=== PATIENT | female | born 1975 ===

== ENCOUNTER 2017-11-30 07:10 | Inpatient (IN) | payer MEDICAID ==
[~2017-11-30 07:10] MED LIST: Lidocaine 1%/Sod Bicarbonate in NS 8.4% 1 ML Syringe IDERM PRN; Sodium Chloride 0.9% 10 ML Syringe FLUSH PRN
[2017-11-30] MEDS: Lactated Ringers 1,000 ML IV SCH ×2 (07:35→14:16)
[2017-11-30] MEDS ORDERED: Scopolamine 1.5 MG Transdermal Patch TOP ONE (07:38)
--- NOTE | 2017-11-30 07:59 | PCM.PREANE ---
Preanesthetic Assessment - Anesthesia/Transfusion/Family Hx Anesthesia History: Prior Anesthesia Reaction Type of Anesthesia Reaction: Other (see below) (ARNOLD) Transfusion History: No Prior Transfusion(s) - Review of Systems General: No Symptoms Pulmonary: No Symptoms Cardiovascular: No Symptoms Gastrointestinal: No Symptoms Neurological: No Symptoms Other: Reports: None - Physical Assessment NPO Status Date: 11/29/17 NPO Status Time: 21:00 Pulse: 71 O2 Sat by Pulse Oximetry: 97 Respiratory Rate: 20 Blood Pressure: 118/60 Vital Signs: Last Vital Signs Temp 37.0 C 11/30/17 07:20 Pulse 71 11/30/17 07:20 Resp 20 11/30/17 07:20 BP 118/60 11/30/17 07:20 Pulse Ox 97 11/30/17 07:20 Height: 1.75 m Weight: 72.121 kg ASA Class: 2 Mental Status: Alert & Oriented x3 Airway Class: Mallampati = 1 Dentition: Reports: Normal Dentition Thyro-Mental Finger Breadths: 3 Mouth Opening Finger Breadths: 3 ROM/Head Extension: Full Lungs: Clear to Auscultation, Normal Respiratory Effort Cardiovascular: Regular Rate, Regular Rhythm - Lab Values: Laboratory Last Values WBC 4.62 K/mm3 (3.98-10.04) 11/28/17 12:33 RBC 4.20 M/mm3 (3.98-5.22) 11/28/17 12:33 Hgb 13.6 gm/L (11.2-15.7) 11/28/17 12:33 Hct 40.5 % (34.1-44.9) 11/28/17 12:33 MCV 96.4 fl (79.4-94.8) H 11/28/17 12:33 MCH 32.4 pg (25.6-32.2) H 11/28/17 12:33 MCHC 33.6 g/dl (32.2-35.5) 11/28/17 12:33 RDW Std Deviation 41.4 fL (36.4-46.3) 11/28/17 12:33 Plt Count 291 K/mm3 (182-369) 11/28/17 12:33 MPV 9.3 fl (9.4-12.3) L 11/28/17 12:33 Neut % (Auto) 55.3 % (34.0-71.1) 11/28/17 12:33 Lymph % (Auto) 33.3 % (19.3-51.7) 11/28/17 12:33 [place] % (Auto) 8.7 % (4.7-12.5) 11/28/17 12:33 Eos % (Auto) 1.9 (0.7-5.8) 11/28/17 12:33 Baso % (Auto) 0.6 % (0.1-1.2) 11/28/17 12:33 Neut # (Auto) 2.55 K/mm3 (1.56-6.13) 11/28/17 12:33 Lymph # (Auto) 1.54 K/mm3 (1.18-3.74) 11/28/17 12:33 [place]iken # (Auto) 0.40 K/mm3 (0.24-0.36) H 11/28/17 12:33 Eos # (Auto) 0.09 K/mm3 (0.04-0.36) 11/28/17 12:33 Baso # (Auto) 0.03 K/mm3 (0.01-0.08) 11/28/17 12:33 Creatinine 0.9 mg/dL (0.55-1.02) 11/28/17 12:33 Est Cr Clr Drug Dosing TNP 11/28/17 12:33 Estimated GFR (MDRD) > 60 mL/min (>60) 11/28/17 12:33 Urine Color Yellow (Yellow) 11/28/17 12:33 Urine Appearance Clear (Clear) 11/28/17 12:33 Urine pH 5.5 (5.0-8.0) 11/28/17 12:33 Ur Specific [place] 1.025 (1.005-1.030) 11/28/17 12:33 Urine Protein Negative (Negative) 11/28/17 12:33 Urine Glucose (UA) Negative (Negative) 11/28/17 12:33 Urine Ketones 1+ (Negative) H 11/28/17 12:33 Urine Occult Blood Negative (Negative) 11/28/17 12:33 Urine Nitrite Negative (Negative) 11/28/17 12:33 Urine Bilirubin Negative (Negative) 11/28/17 12:33 Urine Urobilinogen 0.2 (0.2-1.0) 11/28/17 12:33 Ur Leukocyte Esterase Negative (Negative) 11/28/17 12:33 Urine HCG, Qual Negative (NEGATIVE) 11/28/17 12:33 - Allergies Allergies/Adverse Reactions: Allergies Allergy/AdvReac Type Severity Reaction Status Date / Time Penicillins Allergy Mild Hives Verified 11/29/17 10:29 - Acknowledgements Anesthesia Type Planned: General Anesthesia Pt an Appropriate Candidate for the Planned Anesthesia: Yes Alternatives and Risks of Anesthesia Discussed w Pt/Guardian: Yes Pt/Guardian Understands and Agrees with Anesthesia Plan: Yes PreAnesthesia Questionnaire HEENT History: Reports: Allergic Rhinitis, Impaired Vision, Other (See Below) Other HEENT History: glasses, contacts Cardiovascular History: Reports: None Respiratory History: Reports: None Gastrointestinal History: Reports: None Genitourinary History: Reports: Urinary Incontinence, Other (See Below) Other Genitourinary History: stress urinary incontinence, cystocele, rectocele, pelvic organ prolapse BLADDER CHANGER History: Reports: Spontaneous , Other (See Below) (HCG negative 11/30/17) Other OB/BYN History: breast feeding, Musculoskeletal History: Reports: None Neurological History: Reports: None Other Neuro History: Approx 2 months ago, pt experienced freq COELLO's over the course of about one month. She states these resolved spontaneously and would improve with plain APAP. Psychiatric History: Reports: Anxiety, Depression Other Psychiatric History: Pt has experienced some episodes of PP depression following some of her deliveries. Endocrine/Metabolic History: Reports: None Hematologic History: Reports: None Immunologic History: Reports: None Oncologic (Cancer) History: Reports: None Dermatologic History: Reports: None - Past Surgical History Head Surgeries/Procedures: Reports: None Cardiovascular Surgical History: Reports: None Respiratory Surgical History: Reports: None GI Surgical History: Reports: None Female Surgical History: Reports: None, Other (See Below) (laparoscopy for IUD removal, proceeded to open case) Male Surgical History: Reports: None Endocrine Surgical History: Reports: None Neurological Surgical History: Reports: None Musculoskeletal Surgical History: Reports: None Oncologic Surgical History: Reports: None Dermatological Surgical History: Reports: None - SUBSTANCE USE Smoking Status *Q: Former Smoker Recreational Drug Use History: No - HOME MEDS Home Medications: Home Meds . [No Known Home Meds] 10/25/18 [History] - CURRENT (IN HOUSE) MEDS Current Meds: Current Medications Lactated Ringer's (Ringers, Lactated) 1,000 mls @ 125 mls/hr IV ASDIRECTED SOPHIE Stop: 11/30/17 23:00 Last Admin: 11/30/17 07:35 Dose: 125 mls/hr Lidocaine/Sodium Bicarbonate (Buffered Lidocaine 1% In Ns 8.4%) 0.25 ml IDERM ONETIME PRN PRN Reason: Prior to IV Start Stop: 11/30/17 18:00 Last Admin: 11/30/17 07:34 Dose: 0.25 ml Sodium Chloride (Saline Flush) 10 ml FLUSH ASDIRECTED PRN PRN Reason: Keep Vein Open Stop: 11/30/17 18:00 Discontinued Medications Scopolamine (Transderm-Scop) 1.5 mg TOP ONETIME ONE Stop: 11/30/17 07:39
[2017-11-30] MEDS ORDERED: fentaNYL 250 MCG/5 ML SDV ONE (08:15)
[2017-11-30] MEDS ORDERED: Midazolam 1 MG/ML 2 ML SDV ONE (08:15)
[2017-11-30] MEDS ORDERED: Rocuronium 50 MG/5 ML Vial ONE (08:15)
[2017-11-30] MEDS ORDERED: Ondansetron 4 MG/2 ML SDV ONE (08:15)
[2017-11-30] MEDS ORDERED: Dexamethasone 4 MG/ML SDV ONE (08:15)
[2017-11-30] MEDS ORDERED: Ketamine 500 mg/10 ML MDV ONE (08:15)
[2017-11-30] MEDS ORDERED: Lidocaine 1% 4 ML ONE (08:15)
[2017-11-30] MEDS ORDERED: Propofol 200 MG/20 ML SDV ONE ×6 (08:15→10:08)
[2017-11-30] MEDS ORDERED: HYDROmorphone 0.5 MG/0.5 ML Syringe ONE ×3 (08:15→15:20)
[2017-11-30] MEDS ORDERED: ceFAZolin 1 GM Vial ONE (08:19)
[2017-11-30] MEDS ORDERED: Lidocaine 1% with EPINEPHrine 1:100,000 20 ML MDV ONE (08:23)
[2017-11-30] MEDS ORDERED: Sodium Chloride 0.9% 50 ML SDV ONE (08:23)
[2017-11-30] MEDS ORDERED: fentaNYL 100 MCG/2 ML SDV IVPUSH PRN (09:11)
[2017-11-30] MEDS ORDERED: Meperidine 50 MG/ML Vial IVPUSH PRN (09:11)
[2017-11-30] MEDS ORDERED: HYDROmorphone 0.5 MG/0.5 ML Syringe IVPUSH ONE (09:11)
[2017-11-30] MEDS ORDERED: diphenhydrAMINE 50 MG/ML SDV IVPUSH PRN (09:11)
[2017-11-30] MEDS ORDERED: Ondansetron 4 MG/2 ML SDV IVPUSH PRN ×2 (09:11→10:26)
[2017-11-30] MEDS ORDERED: Ketorolac 30 MG/ML SDV ONE (09:20)
[2017-11-30] MEDS ORDERED: Lactated Ringers 1,000 ML ONE (09:28)
[2017-11-30] MEDS ORDERED: Acetaminophen/oxyCODONE 325-5 MG Tab PO PRN ×2 (10:26→17:12)
[2017-11-30] MEDS ORDERED: Ketorolac 30 MG/ML SDV IVPUSH SCH (10:30)
--- NOTE | 2017-11-30 10:34 | PCM.POSTAN ---
POST ANESTHESIA ASSESSMENT - MENTAL STATUS Mental Status: Alert, Oriented - VITAL SIGNS Pulse Rate: 75 SaO2: 100 Resp Rate: 10 Blood Pressure: 107/59 Temperature: 36.8 C - RESPIRATORY Respiratory Status: Respiratory Rate WNL, Airway Patent, O2 Saturation Stable, Supplemental Oxygen - CARDIOVASCULAR CV Status: Pulse Rate WNL, Blood Pressure Stable - GASTROINTESTINAL GI Status: No Symptoms - PAIN Pain Score: 0 - POST OP HYDRATION Hydration Status: Adequate & Stable
--- NOTE | 2017-11-30 10:37 | PCM.OPNOTE ---
- General Post-Op/Procedure Note Date of Surgery/Procedure: 11/30/17 Operative Procedure(s): Total vaginal hysterectomy, bilateral salpingectomy, anterior and posterior vaginal repair, modified Moschcowitz procedure, perineoplasty, subfascial mid-urethral sling. Findings: Grade 2-3 cystocele, grade 2 uterine prolapse, grade 2-3 rectocele. Patient had normal-appearing ovaries and these were left in place per patient desire. Pre Op Diagnosis: 1. Cystocele. 2. Rectocele. 3. Uterine prolapse. 4. Stress urinary incontinence Post-Op Diagnosis: Same Anesthesia Technique: General ET Tube Other Anesthesia Type: Lidocaine quarter percent with epinephrinetotal of approximately 30 mLloc Primary Surgeon: Tarik Judge Secondary Surgeon: Elliot Johnston Anesthesia Provider: Francisco Javier Randall Internal Controls Consultant: Caden Sheppard Reason Internal Controls Consultant Was Necessary: Same Role of Internal Controls Consultant: Retraction, assistance, patient safety, quality of care Complications: None Condition: Good Free Text/Narrative:: Intake & Output 11/29/17 11/30/17 11/30/17 22:59 06:59 14:59 Output Total 230 Balance -230 Surgery duration one hour and 27 minutes. Procedure: The patient was placed in supine position on the operating table. She received 2 g of Ancef preoperatively for infection prophylaxis and had sequential compression stockings in place for DVT prophylaxis. General endotracheal anesthesia was accomplished. After positioning, and adequate prep and drape, the procedure was then performed. Sterile speculum was placed in the vagina and cervix was visualized. Cervix was injected with [lidocaine quarter percent with epinephrine]. [20 cc] used. A full circumference incision was made in the cervical epithelium. The bladder was pushed well back off cervix. Posterior cul-de-sac was then entered sharply without problems. Left uterosacral was crossclamped with a Enseal vessel closure system. The left uterosacral and then the right uterosacral ligament pedicles were developed using the Enseal system. The anterior cul-de-sac was then entered without problems and the uterine vasculature, cardinal ligament and broad ligament then developed using Enseal vessel closure system. The uterus was inverted at this time and upper broad ligament fallopian tube pedicles were crossclamped with Kaushal clamps. Specimen was totally removed. Left and right fallopian tube was normal. Using the vessel closure system each of the tubes was then removed and sent with the specimen. The patient was found to be hemostatically intact at this time. Anterior vaginal repair was performed in the routine fashion. The midline epithelium was grasped approximately 2 cm from the urethral meatus. The epithelium at the vaginal cuff after removal of the uterus was grasped 2 with Allis clamps. The epithelium was infiltrated with lidocaine quarter percent with epinephrine approximately 10 mL. Midline incision was made in the epithelium was dissected off the underlying support tissue. The vesicovaginal fascia that remained was then reapproximated midline with approximately 5 stitches of 0 Monocryl. This effectively reduced the cystocele. Excess epithelium was removed on each side sharply and the epithelium was reapproximated using 3-0 Monocryl a short running suture. Vaginal cuff was closed after posterior aspect was run with 0 Monocryl in a locking suture for hemostasis. Modified Moschcowitz procedure was performed using 0 Monocryl securing the uterosacral ligaments to the lateral angles of the vagina. Bladder was again drained with a red rubber catheter. 240 mL normal urine was removed. The epithelium overlying the urethra was grasped approximately 1 cm from the urethral meatus and approximately 2 cm cephalad from there with Allis clamps. The area of the skin overlying the medial aspect of the obturator foramen on each side just posterior to the origin the abductor longus muscle was marked with a marking pen. These 2 areas and the sub-fascial layer of the vaginal were then infiltrated with lidocaine quarter percent with epinephrine total of approximately 10 mL was used. incisions made in the epithelium overlying the urethra and 2 small stab wounds 3 mm in length were made in the 2 areas of the panty line of the patient. The subfascial planes and adequately dissected bilaterally to allow placement of the mesh. The helical adapter was then placed through the obturator on patient's left side brought out through the vaginal subfascial plane. Mesh was attached to it and then was pulled back through the obturator foramen. Same was done on the right side. Mesh was then snugged up to the urethra. Dilator 15 mm in diameter was used as a spacer to place the mesh in a tension-free position. At this point the mesh was cut off at the skin surface and the dilator was removed. The midline epithelium was closed with a short running suture of 3-0 Monocryl. Skin incisions were closed with Dermabond skin glue. Posterior repair was then performed.The uppermost portion of the rectocele was identified and was grasped midline with an Allis clamp. The introital area was grasped at approximately the 4:00 and 8:00 positions at the junction of the vaginal and vulvar epithelium. The area of epithelium was then infiltrated with lidocaine quarter percent with epinephrine. A zach-shaped piece of epithelium was removed from the posterior introital and perineal area. The vaginal epithelium was then undermined superiorly to the top of the rectocele. Was then incised midline. With sharp and blunt dissection the epithelium was then dissected off of the underlying vesicovaginal fascia. At this point approximately 6 sutures of 0 Monocryl were placed to reapproximate the lateral supportive tissue midline and reduce the rectocele. The excess epithelium was then excised and the epithelium overlying the rectocele repair was then reapproximated with a running suture of 3-0 Monocryl. Perineoplasty was performed using 4 V-type stitches of 0 Monocryl. This lengthened the perineal body and the vagina. Also change the angle of vagina. At this point the epithelium over the perineum was closed in an episiotomy fashion using the 3-0 Monocryl suture. The bladder was filled with approximately 240 cc of normal saline at the very end of the case to facilitate voiding and therefore discharged home. Patient was returned to supine position and awakened from general endotracheal anesthesia. She tolerated the procedure was then left the operating room in satisfactory condition.
[2017-11-30] MEDS ORDERED: HYDROmorphone 0.5 MG/0.5 ML Syringe IVPUSH PRN (15:18)
[2017-11-30] MEDS: Ketorolac 30 MG/ML SDV IVPUSH PRN (17:21)
[2017-11-30] MEDS ORDERED: Belladonna Alkaloids/Opium 16.2-30 MG Supp RECTAL ONE (19:00)
[2017-11-30] MEDS ORDERED: hydrALAZINE 25 MG Tab PO PRN (19:31)
[2017-11-30] MEDS ORDERED: Benzocaine/Menthol 20%-0.5% Spray 56 GM Canister TOP PRN (19:32)
[2017-11-30] MEDS ORDERED: Witch Hazel Medicated Pads 100/Jar TOP PRN (19:32)
[2017-11-30] MEDS ORDERED: hydrOXYzine HCl 25 MG Tab PO PRN (20:00)
[2017-11-30] MEDS: Nitrofurantoin Monohydrate/Macrocrystalline 100 MG Cap PO SCH (21:43)
[2017-11-30] MEDS: Docusate Sodium 100 MG Cap PO PRN (21:43)
[2017-12-01] MEDS: Ketorolac 30 MG/ML SDV IVPUSH PRN ×2 (00:13→06:50)
[2017-12-01] MEDS ORDERED: hydrOXYzine HCl 25 MG/ML SDV IM ONE (00:41)
[2017-12-01] MEDS ORDERED: Morphine Sulfate 10mg/ml SDV IM ONE (00:45)
[2017-12-01] MEDS: Lactated Ringers 1,000 ML IV SCH ×3 (01:27→13:12)
--- NOTE | 2017-12-01 01:35 | PCM.SN ---
- Free Text/Narrative Note: Patient examined at 0115 12/01/17. Ecchymosis perineal. Swelling right labia majora to vaginal mucosa about 8x8x10 cm from labia toward middle 1/3 of vagina and tender. Carrera catheter placed, 150 ml. Has been started on Macrobid already because of in and out caths required to drain bladder. Will keep patient NPO except ice chips then NPO after 0400 in case she had to go back to OR to have evaluation under anesthesia and possible drainage. Continue ice pack. Will re- evaluate in AM.
[2017-12-01] MEDS ORDERED: Iopamidol 612 MG/ML 150 ML Bottle IVPUSH ONE (08:09)
--- NOTE | 2017-12-01 08:28 | CT ---
CT abdomen and pelvis Technique: Multiple axial sections were obtained from above the dome of the diaphragm inferiorly through the pubic symphysis. Intravenous contrast was utilized. Delayed images were also obtained through the abdomen and pelvis. No oral contrast was utilized which diminishes details. Findings: Heterogeneous abnormality is seen posterior to the bladder within the pelvis. This finding measures approximately 11.0 cm in AP dimension and 10.8 cm in transverse dimension and about 15.3 cm in craniocaudal dimension. Please correlate if patient has had prior hysterectomy which would indicate this represents a large hematoma or a large heterogeneous uterus if patient still has the uterus in. Small amount of fluid is seen around the liver and spleen with heterogeneous material being seen within the left paracolic gutter compatible with blood. Cystic area is noted within the left anterior pelvis most likely representing ovarian cyst measuring 3.2 cm. Carrera catheter is present within the bladder. Visualized lung bases shows nothing acute. Liver shows no focal abnormality. Spleen appears within normal limits. Adrenal glands show no nodule. Pancreas is normal. Kidneys show symmetric contrast enhancement without hydronephrosis. No cyst or solid abnormality is seen. Aorta shows no aneurysm. Slight soft tissue density around the aorta is seen most likely due to blood tracking up from the pelvis. Appendix is not visualized with certainty. Delayed images shows contrast excretion into the ureters and bladder. Bone window settings shows no acute osseous abnormality. Impression: 1. Heterogeneous abnormality within the pelvis. Measurements as noted above. As mentioned above, this presumably represents a large hematoma if patient has had previous hysterectomy. If uterus is still in place, this would representing an enlarged heterogeneous uterus. 2. Fluid around the liver and spleen with more heterogeneous material seen within the left paracolic gutter. Small amount of fluid within the retroperitoneum is seen around the aorta. Findings most likely due to additional blood. 3. 3.2 cm cyst within the anterior lower pelvis most likely due to ovarian cyst. Note: Study somewhat limited without oral contrast. Diagnostic code #3
[2017-12-01] MEDS: Sodium Chloride 0.9% 500 ML ONE ×3 (08:30→09:31)
[2017-12-01] MEDS ORDERED: Acetaminophen 325 MG Tab PO PRN (08:50)
[2017-12-01] MEDS ORDERED: Sodium Chloride 0.9% 500 ML IV SCH (09:00)
[2017-12-01] MEDS ORDERED: Sodium Chloride 0.9% 500 ML ONE (09:07)
--- NOTE | 2017-12-01 10:39 | PCM.SN ---
- Free Text/Narrative Note: Patient seen and examined by me and Dr. Judge. Patient had significant decrease in hemoglobin hematocrit during the night no heavy vaginal bleeding but signs of significant hematoma on examination as well as CT scan. CT scan showed heterogenous abnormalities seen posterior to the bladder within the pelvis. This finding measured approximately 11.0 cm in AP dimension and 10.8 cm in transverse dimension and 15.3 cm in cranial caudad dimension. Patient has 6 units of blood type and cross matched receiving her second unit now, Patient also received 1 unit of fresh frozen plasma and has a unit of platelets to be infused. She has 4 additional units of blood type and cross matched for transfusion if needed. Will plan to take patient to the operating room for laparoscopy possible laparotomy possible incision and drainage of the hematoma additional surgery as indicated. Patient has been nothing by mouth throughout the night. Except for ice chips small medicine cup 1 very dry mouth. On clinical examination at the bedside chest clear. No abnormal breath sounds. Abdomen is tender spaced and suprapubic area. Significant ecchymosis of the left buttocks and hematoma the right labia majora and vagina.
[2017-12-01] MEDS ORDERED: Midazolam 1 MG/ML 2 ML SDV ONE (10:55)
[2017-12-01] MEDS ORDERED: ceFAZolin 1 GM Vial ONE (10:55)
[2017-12-01] MEDS ORDERED: Ondansetron 4 MG/2 ML SDV ONE (10:55)
[2017-12-01] MEDS ORDERED: Rocuronium 50 MG/5 ML Vial ONE (10:55)
[2017-12-01] MEDS ORDERED: Lactated Ringers 1,000 ML ONE ×2 (10:55→12:37)
[2017-12-01] MEDS ORDERED: Propofol 200 MG/20 ML SDV ONE ×2 (10:55→10:58)
[2017-12-01] MEDS ORDERED: fentaNYL 250 MCG/5 ML SDV ONE (10:56)
[2017-12-01] MEDS ORDERED: Lidocaine 1% 4 ML ONE (10:56)
[2017-12-01] MEDS ORDERED: Metoclopramide 10 MG/2 ML SDV ONE (11:15)
[2017-12-01] MEDS ORDERED: Bupivacaine 0.5% 30 ML SDV ONE (11:17)
[2017-12-01] MEDS ORDERED: Ketamine 500 mg/10 ML MDV ONE (11:22)
[2017-12-01] MEDS ORDERED: diphenhydrAMINE 50 MG/ML SDV IVPUSH PRN (12:28)
[2017-12-01] MEDS ORDERED: HYDROmorphone 0.5 MG/0.5 ML SYRINGE IV PRN (12:28)
[2017-12-01] MEDS ORDERED: Haloperidol Lactate 5 MG/ML SDV IVPUSH ONE (12:28)
[2017-12-01] MEDS ORDERED: fentaNYL 100 MCG/2 ML SDV IVPUSH PRN (12:28)
[2017-12-01] MEDS ORDERED: ePHEDrine 50 MG/ML SDV IVPUSH PRN (12:28)
[2017-12-01] MEDS ORDERED: Sodium Chloride 0.9% 1,000 ML ONE (12:30)
[2017-12-01] MEDS ORDERED: Succinylcholine/Normal Saline 100 MG/5 ML Syringe ONE (12:30)
[2017-12-01] MEDS ORDERED: Neostigmine Methylsulfate 1 MG/ML 5 ML Syringe ONE (12:53)
--- NOTE | 2017-12-01 13:20 | PCM.POSTAN ---
POST ANESTHESIA ASSESSMENT - MENTAL STATUS Mental Status: Alert, Oriented - VITAL SIGNS Pulse Rate: 95 SaO2: 100 Resp Rate: 16 Blood Pressure: 111/57 Temperature: 100.4 C - RESPIRATORY Respiratory Status: Respiratory Rate WNL, Airway Patent, O2 Saturation Stable, Supplemental Oxygen - CARDIOVASCULAR CV Status: Pulse Rate WNL, Blood Pressure Stable - GASTROINTESTINAL GI Status: No Symptoms - PAIN Pain Score: 0 - POST OP HYDRATION Hydration Status: Adequate & Stable
--- NOTE | 2017-12-01 13:25 | PCM.OPNOTE ---
- General Post-Op/Procedure Note Date of Surgery/Procedure: 12/01/17 Operative Procedure(s): Laparoscopy, evacuation of vaginal hematoma Findings: Blood clot noted under the vaginal epithelium posteriorly in the area of the posterior vaginal repair. Blood clot dissected to the right and to the left of the rectum. Hematoma from bleeding which dissected cephalad along the rectum, sigmoid colon and the ascending colon. No evidence of active bleeding in the peritoneal cavity. Hematoma extending into the right and left buttocks. Left greater than right. Ovaries looked normal bilaterally small cyst noted in the left ovary. Upper abdomen unremarkable. Pre Op Diagnosis: 1. Vaginal hematoma. 2. Acute blood loss anemia secondary to hematoma Post-Op Diagnosis: Same Anesthesia Technique: General ET Tube Other Anesthesia Type: Marcaine 0.5%approximate 10 mL total Primary Surgeon: Tarik Judge Secondary Surgeon: Elliot Johnston Anesthesia Provider: Peg Ryder County Adviser: Caden Sheppard Reason County Adviser Was Necessary: Retraction, assistance, quality of care, patient safety Role of County Adviser: same Fluid Replacement, Intraop: 500 (3 units packed red blood cells, 1 unit of fresh frozen plasma) Output, Urine Amount: 350 EBL in mLs: 1,250 (Blood loss includes evacuated hematoma and small amount of blood loss from the time surgery) Drain/Tube Comments:: Indwelling bladder catheter Complications: None Condition: Good Free Text/Narrative:: Intake & Output 11/30/17 12/01/17 12/01/17 22:59 06:59 14:59 Intake Total 3491 Output Total 700 2100 Balance -700 1391 Surgery duration: One hour and 35 minutes Procedure: Patient was taken to surgery and placed in supine position on the operating table. She received 2 g of Ancef preoperatively for infection prophylaxis. She had sequential compression stockings in place for DVT prophylaxis. She had been consented for laparoscopy, possible laparotomy, exam under anesthesia and other surgery as necessary regarding vaginal hematoma. After general endotracheal anesthesia was established patient was placed in dorsal lithotomy position and examined under anesthesia. It was apparent that there was a vaginal hematoma in the area of the posterior vaginal repair which appeared to have dissected around each side of the rectum and down into the buttocks. It then appeared to have dissected cephalad to the sigmoid colon and along the sigmoid colon and descending colon. The colon changes noted per evaluation with laparoscopy. Laparoscopy was then performed. A Verres needle was used to create a pneumoperitoneum. The patient then had 5 mm infraumbilical and a suprapubic port sites developed without problems. Eventually a lateral port site on the right side was developed also. There is no evidence of free blood in the peritoneal cavity. Only blood noted was that which appeared to have dissected along the sigmoid and descending colon. The area of hematoma appeared flaccid however and the bowel appeared to functional and without vascular compromise. Dr. Kathleen, general/GI surgeon, was consulted and came in to evaluate bowel findings at the time of laparoscopy. He felt that the hematoma was stable. He felt no further evaluation or therapy was necessary in this area. He also felt that there should be no significant chance of compromise of the bowel with these findings. At this time attention was turned to the vagina. Her vaginal epithelial incision line was taken down. A moderately large hematoma was immediately apparent in this area. Blood clot was removed. Just under the epithelium on the left side was noted an arterial bleeder that was still bleeding. This was clamped and suture ligated with 0 Vicryl. 2 other vessels were also occluded with hemoclips. Significant amount of clot was removed. At this time hemostasis was confirmed. FloSeal was placed in this subepithelial area to help decrease any likelihood of continued bleeding. The epithelium was then reapproximated using a short running suture of 0 Vicryl in the upper and of the posterior vaginal repair incision. Lower end of the incision was closed with 2 figure-of- eight sutures and a small opening to allow egress of any potential bleeding that might occur. The vagina was packed with a Kerlix sponge that had been prepped with Premarin vaginal cream. The indwelling bladder catheter remained in place during the surgery and was kept in place after the surgery. Once the vaginal portion procedure was finished patient's was again returned to a supine position and the laparoscopy was then used to evaluate the peritoneal cavity. No bleeding was noted. Hemostasis was confirmed. The abdominal incisions were closed with single interrupted suture of 3-0 Monocryl and further approximated with Dermabond skin glue. Patient was returned to the supine position and awakened from general endotracheal anesthesia. She left the operating room in satisfactory condition. Vital signs remained stable throughout the procedure.
[2017-12-01] MEDS ORDERED: Dexamethasone 4 MG/ML 5 ML MDV ONE (13:44)
[2017-12-01] MEDS: Nitrofurantoin Monohydrate/Macrocrystalline 100 MG Cap PO SCH (14:02)
[2017-12-01] MEDS ORDERED: Metoclopramide 10 MG/2 ML SDV IVPUSH ONE (14:05)
[2017-12-01] MEDS ORDERED: HYDROmorphone 1 MG/ML Syringe IVPUSH PRN (14:52)
[2017-12-01] MEDS ORDERED: Ondansetron 4 MG/2 ML SDV IVPUSH PRN (14:52)
[2017-12-01] MEDS ORDERED: Lactated Ringers 1,000 ML IV SCH (14:52)
[2017-12-01] MEDS: Acetaminophen/oxyCODONE 325-5 MG Tab PO PRN (16:50)
[2017-12-01] MEDS: ceFAZolin 1 GM in Premix Bag 1 BAG IV SCH ×2 (16:55→23:08)
[2017-12-01] MEDS: Docusate Sodium 100 MG Cap PO PRN (20:38)
[2017-12-02] MEDS: Acetaminophen/oxyCODONE 325-5 MG Tab PO PRN ×3 (05:31→20:01)
[2017-12-02] MEDS: ceFAZolin 1 GM in Premix Bag 1 BAG IV SCH ×4 (05:32→23:14)
[2017-12-02] MEDS: Lactated Ringers 1,000 ML IV SCH ×3 (09:32→19:59)
--- NOTE | 2017-12-02 10:26 | PCM.SN ---
- Free Text/Narrative Note: Vaginal pack removed today scant bleeding no bright red blood. Carrera catheter to be removed. Hemoglobin this morning 9.8. Patient in good spirits no leg cramping no abdominal tenderness. Stable. Regular diet, ambulate today, possibly home tomorrow.
[2017-12-02] MEDS: Docusate Sodium 100 MG Cap PO SCH ×2 (10:48→21:00)
--- NOTE | 2017-12-02 16:36 | PCM48HPAN ---
Post Anesthesia Note - EVALUATION WITHIN 48HRS OF ANESTHETIC Vital Signs in Normal Range: Yes Patient Participated in Evaluation: Yes Respiratory Function Stable: Yes Airway Patent: Yes Cardiovascular Function Stable: Yes Hydration Status Stable: Yes Pain Control Satisfactory: Yes Nausea and Vomiting Control Satisfactory: Yes Mental Status Recovered: Yes
--- NOTE | 2017-12-02 19:02 | PCM.SN ---
- Free Text/Narrative Note: Patient doing well. No heavy bleeding, small amount like light menstrual day. Voided with 160 prevoid and 72 post void residual earlier. No bowel movement as yet, will drink prune juice she says. Instructed to avoid straining with voiding or bowel movement.
--- NOTE | 2017-12-02 19:31 | PCM.DEL ---
L & D Note - General Info Date of Service: 12/02/17 Mother's Due Date: 11/22/17 - Delivery Note Labor: Spontaneous, Augmented by ARM, Augmented by Oxytocin Delivery Outcome: Livebirth (Male liveborn Sunday12/02/17 and 1908 hrs. JUAREZ Apgars 8/9 weight pending shoulder cord 1) Delivery Method: Spontaneous Vaginal Delivery-Single Infant Delivery Mode: Spontaneous Presentation: Right Occiput Anterior (JUAREZ) Nuchal Cord: None (Shoulder cord 1) Prep: Povidone-Iodine (Betadine Anesthesia Type: Combined Spinal Epidural Amniotic Fluid Description: Clear Episiotomy Type: None Laceration: 1st Degree (Right periurethral not bleeding not sutured, midline first-degree sutured 3-0 Monocryl times one) Suture type: Other (Monocryl) Suture size: 3-0 Placenta: Intact, Spontaneous (Delivered at 1911 hrs. Sunday12/02/17 intact examined discarded) Cord: 3 Vessels Estimated Blood Loss: 250 Resuscitation Needed: No : Suctioned, Bulb Syringe, Stimulated, Warmed, [place] Used, Warmer Used Provider: Elliot Johnston Score 1 min: 8 Score 5 min: 9 - General Info Date of Service: 12/02/17 Functional Status: Reports: Pain Controlled - Review of Systems General: Reports: No Symptoms HEENT: Reports: No Symptoms Pulmonary: Reports: No Symptoms Cardiovascular: Reports: No Symptoms Gastrointestinal: Reports: No Symptoms Genitourinary: Reports: No Symptoms Musculoskeletal: Reports: No Symptoms Skin: Reports: No Symptoms Neurological: Reports: No Symptoms Psychiatric: Reports: No Symptoms - Patient Data Vitals - Most Recent: Last Vital Signs Temp 98.4 F 12/02/17 16:24 Pulse 79 12/02/17 16:24 Resp 16 12/02/17 16:24 BP 107/40 L 12/02/17 16:24 Pulse Ox 95 12/02/17 16:24 Weight - Most Recent: 159 lb I&O - Last 24 Hours: Intake & Output 12/02/17 12/02/17 12/02/17 06:59 14:59 22:59 Intake Total 400 1500 1230 Output Total 300 185 100 Balance 100 1315 1130 Lab Results Last 24 Hours: Laboratory Results - last 24 hr 12/01/17 12/02/17 12/02/17 Range/Units 06:26 08:10 08:10 WBC 6.70 (3.98-10.04) K/mm3 RBC 3.26 L (3.98-5.22) M/mm3 Hgb 9.8 L (11.2-15.7) gm/L Hct 29.5 L (34.1-44.9) % MCV 90.5 (79.4-94.8) fl MCH 30.1 (25.6-32.2) pg MCHC 33.2 (32.2-35.5) g/dl RDW Std Deviation 51.7 H (36.4-46.3) fL Plt Count 132 L (182-369) K/mm3 MPV 9.5 (9.4-12.3) fl Neut % (Auto) 65.8 (34.0-71.1) % Lymph % (Auto) 23.6 (19.3-51.7) % Elbert % (Auto) 9.4 (4.7-12.5) % Eos % (Auto) 0.7 (0.7-5.8) Baso % (Auto) 0.4 (0.1-1.2) % Neut # (Auto) 4.40 (1.56-6.13) K/mm3 Lymph # (Auto) 1.58 (1.18-3.74) K/mm3 Elbert # (Auto) 0.63 H (0.24-0.36) K/mm3 Eos # (Auto) 0.05 (0.04-0.36) K/mm3 Baso # (Auto) 0.03 (0.01-0.08) K/mm3 Sodium 141 (136-145) mEq/L Potassium 3.4 L (3.5-5.1) mEq/L Chloride 106 (98-107) mEq/L Carbon Dioxide 29 (21-32) mEq/L Anion Gap 9.4 (5-15) BUN 7 (7-18) mg/dL Creatinine 0.8 (0.55-1.02) mg/dL Est Cr Clr Drug Dosing 97.69 mL/min Estimated GFR (MDRD) > 60 (>60) mL/min BUN/Creatinine Ratio 8.8 L (14-18) Glucose 97 (74-106) mg/dL Calcium 7.8 L (8.5-10.1) mg/dL Total Bilirubin 1.3 H (0.2-1.0) mg/dL AST 17 (15-37) U/L ALT 14 (14-59) U/L Alkaline Phosphatase 39 L (46-116) U/L Total Protein 5.0 L (6.4-8.2) g/dl Albumin 2.6 L (3.4-5.0) g/dl Globulin 2.4 gm/dL Albumin/Globulin Ratio 1.1 (1-2) Blood Type O POSITIVE Gel Antibody Screen Negative Crossmatch See Detail Hang Results Last 24 Hours: Microbiology 12/01/17 12:08 Gram Stain - Final Perineum Anaerobic Culture - Preliminary NO GROWTH AFTER 1 DAY Med Orders - Current: Current Medications Diphenhydramine HCl (Benadryl) 25 mg IVPUSH Q6H PRN PRN Reason: Pruritis Docusate Sodium (Colace) 100 mg PO BID [facility] Last Admin: 12/02/17 10:48 Dose: 100 mg Ephedrine Sulfate (Ephedrine Sulfate) 5 mg IVPUSH ASDIRECTED PRN PRN Reason: Hypotension Fentanyl (Sublimaze) 50 mcg IVPUSH Q5M PRN PRN Reason: Pain Hydromorphone HCl (Dilaudid) 0.5 mg IV ASDIRECTED PRN PRN Reason: Severe Pain Hydromorphone HCl (Dilaudid) 1 mg IVPUSH Q2H PRN PRN Reason: Pain (severe 7-10) Last Admin: 12/02/17 09:48 Dose: 1 mg Lactated Ringer's (Ringers, Lactated) 1,000 mls @ 125 mls/hr IV ASDIRECTED [facility] Last Admin: 12/02/17 16:34 Dose: 125 mls/hr Cefazolin Sodium/Dextrose 1 gm (/ Premix) 50 mls @ 100 mls/hr IV Q6H [facility] Last Admin: 12/02/17 16:30 Dose: 100 mls/hr Lactated Ringer's (Ringers, Lactated) 1,000 mls @ 125 mls/hr IV ASDIRECTED [facility] Ondansetron HCl (Zofran) 4 mg IVPUSH Q4H PRN PRN Reason: Nausea/Vomiting Oxycodone/Acetaminophen (Percocet 325-5 Mg) 2 tab PO Q4H PRN PRN Reason: Pain (moderate 4-6) Last Admin: 12/02/17 16:28 Dose: 1 tab Discontinued Medications Acetaminophen (Tylenol) 650 mg PO Q4H PRN PRN Reason: fever pain Last Admin: 12/01/17 08:30 Dose: 650 mg Belladonna Alkaloids/Opium (B & O Supprettes No. 15a) 1 supp RECTAL ONETIME ONE Stop: 11/30/17 19:01 Last Admin: 11/30/17 19:02 Dose: 1 supp Benzocaine/Menthol (Dermoplast Pain [facility]) 0 gm TOP ASDIRECTED PRN PRN Reason: Pain Last Admin: 12/01/17 00:13 Dose: 1 applic Bupivacaine HCl (Marcaine 0.5%) Confirm Administered Dose 30 ml .ROUTE .STK-MED ONE Stop: 12/01/17 11:18 Last Admin: 12/01/17 11:53 Dose: 8 ml Cefazolin Sodium (Ancef) Confirm Administered Dose 2 gm .ROUTE .STK-MED ONE Stop: 11/30/17 08:20 Cefazolin Sodium (Ancef) Confirm Administered Dose 2 gm .ROUTE .STK-MED ONE Stop: 12/01/17 10:56 Dexamethasone (Dexamethasone) Confirm Administered Dose 8 mg .ROUTE .STK-MED ONE Stop: 11/30/17 08:16 Dexamethasone (Dexamethasone) Confirm Administered Dose 20 mg .ROUTE .STK-MED ONE Stop: 12/01/17 13:45 Diphenhydramine HCl (Benadryl) 25 mg IVPUSH Q6H PRN PRN Reason: Pruritis Stop: 11/30/17 12:00 Docusate Sodium (Colace) 100 mg PO BID PRN PRN Reason: Constipation Last Admin: 12/01/17 20:38 Dose: 100 mg Fentanyl (Sublimaze) Confirm Administered Dose 250 mcg .ROUTE .STK-MED ONE Stop: 11/30/17 08:16 Fentanyl (Sublimaze) 50 mcg IVPUSH Q5M PRN PRN Reason: Pain Stop: 11/30/17 09:12 Fentanyl (Sublimaze) Confirm Administered Dose 250 mcg .ROUTE .STK-MED ONE Stop: 12/01/17 10:57 Glycopyrrolate () Confirm Administered Dose 1 mg .ROUTE .STK-MED ONE Stop: 12/01/17 12:54 Haloperidol Lactate (Haldol) 1 mg IVPUSH ONETIME ONE Stop: 12/01/17 12:29 Last Admin: 12/02/17 02:50 Dose: Not Given Hydromorphone HCl (Dilaudid) Confirm Administered Dose 0.5 mg .ROUTE .STK-MED ONE Stop: 11/30/17 08:16 Hydromorphone HCl (Dilaudid) Confirm Administered Dose 0.5 mg .ROUTE .STK-MED ONE Stop: 11/30/17 09:01 Hydromorphone HCl (Dilaudid) 0.5 mg IVPUSH ONETIME ONE Stop: 11/30/17 09:12 Last Admin: 11/30/17 16:52 Dose: Not Given Hydromorphone HCl (Dilaudid) 1 mg IVPUSH Q2H PRN PRN Reason: Pain Last Admin: 11/30/17 15:19 Dose: 1 mg Hydromorphone HCl (Dilaudid) Confirm Administered Dose 1 mg .ROUTE .STK-MED ONE Stop: 11/30/17 15:21 Last Admin: 11/30/17 15:29 Dose: Not Given Hydroxyzine HCl (Atarax) 25 mg PO Q6H PRN PRN Reason: Pain Last Admin: 11/30/17 21:10 Dose: 25 mg Hydroxyzine HCl (Vistaril) 25 mg IM ONETIME ONE Stop: 12/01/17 00:42 Last Admin: 12/01/17 01:26 Dose: 25 mg Lactated Ringer's (Ringers, Lactated) 1,000 mls @ 125 mls/hr IV ASDIRECTED [facility] Stop: 11/30/17 23:00 Last Admin: 12/01/17 13:12 Dose: 125 mls/hr Lidocaine HCl (Xylocaine-Mpf 1%) Confirm Administered Dose 4 mls @ as directed .ROUTE .STK-MED ONE Stop: 11/30/17 08:16 Lactated Ringer's (Ringers, Lactated) Confirm Administered Dose 1,000 mls @ as directed .ROUTE .STK-MED ONE Stop: 11/30/17 09:29 Acetaminophen (Ofirmev) 100 mls @ 400 mls/hr IV NOW ONE Stop: 11/30/17 14:06 Last Admin: 11/30/17 13:58 Dose: 400 mls/hr Lactated Ringer's (Ringers, Lactated) 1,000 mls @ 125 mls/hr IV ASDIRECTED [facility] Last Admin: 12/01/17 06:52 Dose: 250 mls/hr Sodium Chloride (Normal Saline) Confirm Administered Dose 500 mls @ as directed .ROUTE .ST-MED ONE Stop: 12/01/17 08:17 Last Admin: 12/01/17 09:30 Dose: 50 mls/hr Sodium Chloride (Normal Saline) 500 mls @ 100 mls/hr IV .ASDIRECTED [facility] Sodium Chloride (Normal Saline) Confirm Administered Dose 500 mls @ as directed .ROUTE .[facility] ONE Stop: 12/01/17 09:08 Last Admin: 12/01/17 09:32 Dose: 50 mls/hr Lactated Ringer's (Ringers, Lactated) Confirm Administered Dose [facility],000 [facility]ls @ [facility] Stop: 12/01/17 10:56 Lidocaine HCl (Xylocaine-Mpf 1%) Confirm Administered Dose 4 mls @ as directed .ROUTE .ST-MED ONE Stop: 12/01/17 10:57 Sodium Chloride (Normal Saline) Confirm Administered Dose 1,000 mls @ as directed .ROUTE .ST-MED ONE Stop: 12/01/17 12:31 Lactated Ringer's (Ringers, Lactated) Confirm Administered Dose 1,000 mls @ as directed [facility] Stop: 12/01/17 12:38 Cefazolin Sodium/Dextrose (Ancef) Confirm Administered Dose 50 mls @ as directed .ROUTE .[facility] ONE Stop: 12/01/17 22:49 Last Admin: 12/02/17 02:50 Dose: Not Given Iopamidol (Isovue-300 (61%)) 120 ml IVPUSH ONETIME ONE Stop: 12/01/17 08:10 Last Admin: 12/01/17 08:20 Dose: 120 ml Ketamine HCl (Ketalar) Confirm Administered Dose 500 mg .ROUTE .STK-MED ONE Stop: 11/30/17 08:16 Ketamine HCl (Ketalar) Confirm Administered Dose 500 mg .ROUTE .STK-MED ONE Stop: 12/01/17 11:23 Ketorolac Tromethamine (Toradol) Confirm Administered Dose 30 mg .ROUTE .STK- MED ONE Stop: 11/30/17 09:21 Ketorolac Tromethamine (Toradol) 30 mg IVPUSH ONETIME [facility] Stop: 11/30/17 16:00 Ketorolac Tromethamine (Toradol) 30 mg IVPUSH Q6H PRN PRN Reason: Pain Last Admin: 12/01/17 06:50 Dose: 30 mg Lidocaine/Epinephrine (Xylocaine 1% With Epinephrine 1:100,000) Confirm Administered Dose 20 ml .ROUTE .STK-MED ONE Stop: 11/30/17 08:24 Last Admin: 11/30/17 08:51 Dose: 15 ml Lidocaine/Sodium Bicarbonate (Buffered Lidocaine 1% In Ns 8.4%) 0.25 ml IDERM ONETIME PRN PRN Reason: Prior to IV Start Stop: 11/30/17 18:00 Last Admin: 11/30/17 07:34 Dose: 0.25 ml Meperidine HCl (Meperidine) 12.5 mg IVPUSH ONETIME PRN PRN Reason: Shivering Stop: 11/30/17 09:12 Metoclopramide HCl (Reglan) Confirm Administered Dose 10 mg .ROUTE .STK-MED ONE Stop: 12/01/17 11:16 Last Admin: 12/01/17 10:20 Dose: 10 mg Metoclopramide HCl (Reglan) 10 mg IVPUSH ONETIME ONE Stop: 12/01/17 14:06 Last Admin: 12/02/17 02:50 Dose: Not Given Midazolam HCl (Versed 1 Mg/Ml) Confirm Administered Dose 2 mg .ROUTE .STK-MED ONE Stop: 11/30/17 08:16 Midazolam HCl (Versed 1 Mg/Ml) Confirm Administered Dose 2 mg .ROUTE .STK-MED ONE Stop: 12/01/17 10:56 Morphine Sulfate (Morphine) 5 mg IM ONETIME ONE Stop: 12/01/17 00:46 Last Admin: 12/01/17 01:26 Dose: 5 mg Neostigmine Methylsulfate (Neostigmine) Confirm Administered Dose 5 mg .ROUTE .STK-MED ONE Stop: 12/01/17 12:54 Nitrofurantoin Macrocrystals (Macrobid) 100 mg PO BID [facility] Last Admin: 12/01/17 14:02 Dose: Not Given Ondansetron HCl (Zofran) Confirm Administered Dose 4 mg .ROUTE .STK-MED ONE Stop: 11/30/17 08:16 Ondansetron HCl (Zofran) 4 mg IVPUSH ONETIME PRN PRN Reason: Nausea/Vomiting Stop: 11/30/17 12:00 Ondansetron HCl (Zofran) 4 mg IVPUSH Q4H PRN PRN Reason: Nausea Stop: 11/30/17 16:00 Last Admin: 11/30/17 13:56 Dose: 4 mg Ondansetron HCl (Zofran) Confirm Administered Dose 4 mg .ROUTE .STK-MED ONE Stop: 12/01/17 10:56 Oxycodone/Acetaminophen (Percocet 325-5 Mg) 2 tab PO Q4H PRN PRN Reason: Pain Stop: 11/30/17 16:00 Oxycodone/Acetaminophen (Percocet 325-5 Mg) 2 tab PO Q4H PRN PRN Reason: Pain Last Admin: 11/30/17 21:37 Dose: 1 tab Propofol (Diprivan 20 Ml) Confirm Administered Dose 200 mg .ROUTE .STK-MED ONE Stop: 11/30/17 08:16 Propofol (Diprivan 20 Ml) Confirm Administered Dose 200 mg .ROUTE .STK-MED ONE Stop: 11/30/17 08:25 Propofol (Diprivan 20 Ml) Confirm Administered Dose 200 mg .ROUTE .STK-MED ONE Stop: 11/30/17 08:25 Propofol (Diprivan 20 Ml) Confirm Administered Dose 200 mg .ROUTE .STK-MED ONE Stop: 11/30/17 09:21 Propofol (Diprivan 20 Ml) Confirm Administered Dose 200 mg .ROUTE .STK-MED ONE Stop: 11/30/17 09:45 Propofol (Diprivan 20 Ml) Confirm Administered Dose 200 mg .ROUTE .STK-MED ONE Stop: 11/30/17 10:09 Propofol (Diprivan 20 Ml) Confirm Administered Dose 400 mg .ROUTE .STK-MED ONE Stop: 12/01/17 10:56 Propofol (Diprivan 20 Ml) Confirm Administered Dose 200 mg .ROUTE .STK-MED ONE Stop: 12/01/17 10:59 Rocuronium [place] (Zemuron) Confirm Administered Dose 50 mg .ROUTE .STK-MED ONE Stop: 11/30/17 08:16 Rocuronium [place] (Zemuron) Confirm Administered Dose 50 mg .ROUTE .STK-MED ONE Stop: 12/01/17 10:56 Scopolamine (Transderm-Scop) 1.5 mg TOP ONETIME ONE Stop: 11/30/17 07:39 Last Admin: 11/30/17 07:55 Dose: 1.5 mg Sodium Chloride (Saline Flush) 10 ml FLUSH ASDIRECTED PRN PRN Reason: Keep Vein Open Stop: 11/30/17 18:00 Sodium Chloride (Normal Saline) Confirm Administered Dose 50 ml .ROUTE .STK-MED ONE Stop: 11/30/17 08:24 Last Admin: 11/30/17 08:51 Dose: 40 ml Succinylcholine Chloride (Succinylcholine In Ns Pf) Confirm Administered Dose 100 mg .ROUTE .STK-MED ONE Stop: 12/01/17 12:31 [place] (Tucks) 1 pad TOP ASDIRECTED PRN PRN Reason: Pain Last Admin: 12/01/17 00:13 Dose: 1 applic - Exam General: Alert, Oriented HEENT: Mucous Membr. Moist/[place] GI/Abdominal Exam: Normal Bowel Sounds, Soft, Non-Tender (Female) Exam: Normal External Exam Extremities: Normal Inspection, No Pedal Edema Skin: Warm, Dry, Intact Psy/Mental Status: Alert, Normal Affect, Normal Mood - Problem List & Annotations (1) 41 weeks gestation of SNOMED Code(s): 67222148 Code(s): Z3A.41 - 41 WEEKS GESTATION OF Status: Acute Current Visit: Yes (2) Normal delivery at term SNOMED Code(s): 92063042 Code(s): O80 - ENCOUNTER FOR FULL-TERM UNCOMPLICATED DELIVERY Status: Acute Current Visit: Yes (3) First degree laceration of perineum, delivered, current hospitalization SNOMED Code(s): 642828804 Code(s): O70.0 - FIRST DEGREE PERINEAL LACERATION DURING DELIVERY Status: Acute Current Visit: Yes (4) Periurethral laceration, delivered, current hospitalization SNOMED Code(s): 169057379 Code(s): O71.82 - OTHER SPECIFIED TRAUMA TO PERINEUM AND VULVA Status: Acute Current Visit: Yes - Problem List Review Problem List Initiated/Reviewed/Updated: No - My Orders Last 24 Hours: My Active Orders 12/02/17 10:30 Docusate Sodium [Colace] 100 mg PO BID
[2017-12-03] MEDS ORDERED: Acetaminophen 325 MG Tab PO PRN (00:05)
[2017-12-03] MEDS: Acetaminophen/oxyCODONE 325-5 MG Tab PO PRN ×4 (00:29→12:15)
[2017-12-03] MEDS: Lactated Ringers 1,000 ML IV SCH (04:40)
[2017-12-03] MEDS: ceFAZolin 1 GM in Premix Bag 1 BAG IV SCH ×2 (04:42→10:47)
[2017-12-03] MEDS: Docusate Sodium 100 MG Cap PO SCH (08:00)
[2017-12-03] MEDS ORDERED: Sodium Chloride 0.9% 10 ML Syringe FLUSH PRN (08:08)
[2017-12-03] MEDS ORDERED: Iopamidol 755 Mg/ML 100 ML Bottle IVPUSH ONE (08:08)
[2017-12-03] MEDS ORDERED: Sodium Chloride 0.9% 100 ML IV SCH (08:15)
--- NOTE | 2017-12-03 08:28 | PCM.CONS ---
H&P History of Present Illness - General Date of Service: 12/03/17 Admit Problem/Dx: 1. Cystocele 2. Rectocele 3. Uterine prolapse 4. Stress urinary incontinence Source of Information: Patient, Old Records, RN Notes Reviewed History Limitations: Reports: No Limitations - History of Present Illness Initial Comments - Free Text/Narative: This is a 42 yo fairly healthy white female with past OB-Gynecologic hx/o Grade 2-3 cystocele, grade 2 uterine prolapse, grade 2-3 rectocele with a normal- appearing ovaries who recently underwent total vaginal hysterectomy, bilateral salpingectomy, anterior and posterior vaginal repair, modified Moschcowitz procedure, perineoplasty, subfascial mid-urethral sling but developed large hematoma s/p evacuation. She is comfortable and in no acute distress. She reports no acute issues or concerns. Hospital Medicine was asked to see her for evaluation of elevated D-Dimer. Pelvic Pain Score (Numeric/FACES): 0 - Related Data Allergies/Adverse Reactions: Allergies Allergy/AdvReac Type Severity Reaction Status Date / Time Penicillins Allergy Mild Hives Verified 11/29/17 10:29 Home Medications: Home Meds Acetaminophen/oxyCODONE [Percocet 325-5 MG] 2 tab PO Q4H PRN tablet 11/30/17 [ Rx] Ibuprofen 600 mg PO Q4HR PRN #30 tablet 11/30/17 [Rx] Acetaminophen/oxyCODONE [Percocet 325-5 MG] 2 tab PO Q4H PRN tablet 12/03/17 [ Rx] Past Medical History HEENT History: Reports: Allergic Rhinitis, Impaired Vision, Other (See Below) Other HEENT History: glasses, contacts Cardiovascular History: Reports: None Respiratory History: Reports: None Gastrointestinal History: Reports: None Genitourinary History: Reports: Urinary Incontinence, Other (See Below) Other Genitourinary History: stress urinary incontinence, cystocele, rectocele, pelvic organ prolapse LENS BLANK GAUGER History: Reports: Spontaneous , Other (See Below) (HCG negative 11/30/17) Other OB/BYN History: breast feeding, Musculoskeletal History: Reports: None Neurological History: Reports: None Other Neuro History: Approx 2 months ago, pt experienced freq COELLO's over the course of about one month. She states these resolved spontaneously and would improve with plain APAP. Psychiatric History: Reports: Anxiety, Depression Other Psychiatric History: Pt has experienced some episodes of PP depression following some of her deliveries. Endocrine/Metabolic History: Reports: None Hematologic History: Reports: None Immunologic History: Reports: None Oncologic (Cancer) History: Reports: None Dermatologic History: Reports: None - Past Surgical History Head Surgeries/Procedures: Reports: None Cardiovascular Surgical History: Reports: None Respiratory Surgical History: Reports: None GI Surgical History: Reports: None Female Surgical History: Reports: None, Other (See Below) (laparoscopy for IUD removal, proceeded to open case) Male Surgical History: Reports: None Endocrine Surgical History: Reports: None Neurological Surgical History: Reports: None Musculoskeletal Surgical History: Reports: None Oncologic Surgical History: Reports: None Dermatological Surgical History: Reports: None Social & Family History - Tobacco Use Smoking Status *Q: Never Smoker Used Tobacco, but Quit: Yes Month/Year Tobacco Last Used: 2011 Second Hand Smoke Exposure: No - Caffeine Use Caffeine Use: Reports: Coffee - Recreational Drug Use Recreational Drug Use: No Drug Use in Last 12 Months: No H&P Review of Systems - Review of Systems: Review Of Systems: See Below General: Denies: Fever, Fatigue HEENT: Reports: No Symptoms Pulmonary: Denies: Shortness of Breath, Pleuritic Chest Pain Cardiovascular: Denies: Chest Pain, Palpitations, Dyspnea on Exertion, Edema Gastrointestinal: Denies: Abdominal Pain, Nausea, Vomiting Genitourinary: Reports: No Symptoms Musculoskeletal: Reports: No Symptoms Skin: Reports: No Symptoms Psychiatric: Denies: Confusion, Depression, Anxiety, Agitation Neurological: Denies: Confusion, Difficulty Walking, Weakness, Gait Disturbance Hematologic/Lymphatic: Reports: No Symptoms Immunologic: Reports: No Symptoms Exam - Exam Exam: See Below - Vital Signs Vital Signs: Last Vital Signs Temp 37.3 C 12/03/17 07:46 Pulse 75 12/03/17 07:46 Resp 14 12/03/17 07:46 BP 125/61 12/03/17 07:46 Pulse Ox 93 L 12/03/17 07:50 Weight: 72.121 kg - Exam General: Alert, Oriented HEENT: Conjunctiva Clear, EACs Clear, EOMI, Hearing Intact, Mucosa Moist & [place] , Nares Patent, Posterior Pharynx Clear, Pupils Equal Lungs: Clear to Auscultation, Normal Respiratory Effort Cardiovascular: Regular Rate, Regular Rhythm GI/Abdominal Exam: Normal Bowel Sounds, Soft, No Organomegaly, No Distention, Tender (mildly tender) (Female) Exam: Deferred Rectal (Female) Exam: Deferred Back Exam: Normal Inspection, Decreased Range of Motion Extremities: Normal Inspection, Normal Range of Motion, Non-Tender, No Pedal Edema, Normal Capillary Refill Peripheral Pulses: 3+: Posterior Tibial (L), Posterior Tibial (R), Dorsalis Pedis (L), Dorsalis Pedis (R) Skin: Warm, Dry, Intact Neuro Extensive - Mental Status: Oriented x3, Normal Cognition, Memory Intact Neuro Extensive - Motor, Sensory, Reflexes: CN II-XII Intact (limited but grossly intact) Psychiatric: Alert, Normal Affect, Normal Mood - Patient Data Lab Results Last 24 hrs: Laboratory Results - last 24 hr 12/02/17 12/02/17 12/03/17 Range/Units 08:10 08:10 04:45 WBC 6.70 (3.98-10.04) K/mm3 RBC 3.26 L (3.98-5.22) M/mm3 Hgb 9.8 L (11.2-15.7) gm/L Hct 29.5 L (34.1-44.9) % MCV 90.5 (79.4-94.8) fl MCH 30.1 (25.6-32.2) pg MCHC 33.2 (32.2-35.5) g/dl RDW Std Deviation 51.7 H (36.4-46.3) fL Plt Count 132 L (182-369) K/mm3 MPV 9.5 (9.4-12.3) fl Neut % (Auto) 65.8 (34.0-71.1) % Lymph % (Auto) 23.6 (19.3-51.7) % [place] % (Auto) 9.4 (4.7-12.5) % Eos % (Auto) 0.7 (0.7-5.8) Baso % (Auto) 0.4 (0.1-1.2) % Neut # (Auto) 4.40 (1.56-6.13) K/mm3 Lymph # (Auto) 1.58 (1.18-3.74) K/mm3 [place] # (Auto) 0.63 H (0.24-0.36) K/mm3 Eos # (Auto) 0.05 (0.04-0.36) K/mm3 Baso # (Auto) 0.03 (0.01-0.08) K/mm3 D-Dimer, Quantitative 3.58 H (0.19-0.50) mg/L Sodium 141 (136-145) mEq/L Potassium 3.4 L (3.5-5.1) mEq/L Chloride 106 (98-107) mEq/L Carbon Dioxide 29 (21-32) mEq/L Anion Gap 9.4 (5-15) BUN 7 (7-18) mg/dL Creatinine 0.8 (0.55-1.02) mg/dL Est Cr Clr Drug Dosing 97.69 mL/min Estimated GFR (MDRD) > 60 (>60) mL/min BUN/Creatinine Ratio 8.8 L (14-18) Glucose 97 (74-106) mg/dL Calcium 7.8 L (8.5-10.1) mg/dL Magnesium (1.8-2.4) mg/dl Total Bilirubin 1.3 H (0.2-1.0) mg/dL AST 17 (15-37) U/L ALT 14 (14-59) U/L Alkaline Phosphatase 39 L (46-116) U/L Total Protein 5.0 L (6.4-8.2) g/dl Albumin 2.6 L (3.4-5.0) g/dl Globulin 2.4 gm/dL Albumin/Globulin Ratio 1.1 (1-2) 12/03/17 Range/Units 06:05 WBC (3.98-10.04) K/mm3 RBC (3.98-5.22) M/mm3 Hgb (11.2-15.7) gm/L Hct (34.1-44.9) % MCV (79.4-94.8) fl MCH (25.6-32.2) pg MCHC (32.2-35.5) g/dl RDW Std Deviation (36.4-46.3) fL Plt Count (182-369) K/mm3 MPV (9.4-12.3) fl Neut % (Auto) (34.0-71.1) % Lymph % (Auto) (19.3-51.7) % [place] % (Auto) (4.7-12.5) % Eos % (Auto) (0.7-5.8) Baso % (Auto) (0.1-1.2) % Neut # (Auto) (1.56-6.13) K/mm3 Lymph # (Auto) (1.18-3.74) K/mm3 [place] # (Auto) (0.24-0.36) K/mm3 Eos # (Auto) (0.04-0.36) K/mm3 Baso # (Auto) (0.01-0.08) K/mm3 D-Dimer, Quantitative (0.19-0.50) mg/L Sodium 139 (136-145) mEq/L Potassium 3.8 (3.5-5.1) mEq/L Chloride 104 (98-107) mEq/L Carbon Dioxide 30 (21-32) mEq/L Anion Gap 8.8 (5-15) BUN 7 (7-18) mg/dL Creatinine 0.8 (0.55-1.02) mg/dL Est Cr Clr Drug Dosing 97.69 mL/min Estimated GFR (MDRD) > 60 (>60) mL/min BUN/Creatinine Ratio 8.8 L (14-18) Glucose 96 (74-106) mg/dL Calcium 7.6 L (8.5-10.1) mg/dL Magnesium 1.5 L (1.8-2.4) mg/dl Total Bilirubin (0.2-1.0) mg/dL AST (15-37) U/L ALT (14-59) U/L Alkaline Phosphatase (46-116) U/L Total Protein (6.4-8.2) g/dl Albumin (3.4-5.0) g/dl Globulin gm/dL Albumin/Globulin Ratio (1-2) Result Diagrams: 12/03/17 06:45 12/03/17 06:05 Hang Results Last 24 hrs: Microbiology 12/01/17 12:08 Gram Stain - Final Perineum Anaerobic Culture - Preliminary NO GROWTH AFTER 1 DAY Consult PN Assessment/Plan Procedures: Procedures ASSAY THYROID STIM HORMONE (02/11/14) BLOOD TYPING SEROLOGIC ABO (01/12/14) BLOOD TYPING SEROLOGIC RH(D) (01/12/14) CHYLMD TRACH DNA AMP PROBE (01/12/14) COMPLETE CBC W/AUTO DIFF WBC (01/12/14) GLUCOSE TEST (05/05/14) HEMOGLOBIN (05/05/14) HEPATITIS B SURFACE AG IA (01/12/14) HIV-1/HIV-2 1 RESULT ANTBDY (01/12/14) N.GONORRHOEAE DNA AMP PROB (01/12/14) OB US >/= 14 WKS SNGL FETUS (03/16/14) OB US FOLLOW-UP PER FETUS (04/27/14) RBC ANTIBODY SCREEN (01/12/14) ROUTINE VENIPUNCTURE (05/05/14) RUBELLA ANTIBODY (01/12/14) SCR MAMMO BI INCL CAD (06/28/17) STREP B DNA AMP PROBE (07/01/14) SYPHILIS TEST NON-TREP QUAL (01/12/14) TRANSVAGINAL US OBSTETRIC (01/14/14) URINALYSIS AUTO W/O SCOPE (07/28/14) Problem List Initiated/Reviewed/Updated: Yes My Orders Last 24 Hours: My Active Orders 12/03/17 05:42 CTA Chest W WO Contrast [Ang Chest] [CT] Routine Plan: 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 Total Vaginal Hysterectomy 2. Bilateral Salpingectomy 3. Anterior and Posterior Vaginal Repair 4. Modified Moschcowitz Procedure 5. Perineoplasty 6. Subfascial Mid-urethral Sling 7. Vaginal Hematomoa S/p Laparoscopic Evacuation Medicine Acute: Elevated D-Dimer - D-Dimer 3.58 - 2/2 the Hematoma - D-Dimer is usually elevated in post surgical patient - Chest CTA showed no PE - No clinical signs of PE or DVT: No significant edema or leg pain. O2 sat is adequate. HRs have been wnl - No treatment needed Small Bilateral Pleural Effusion - Seen on Chest CTA - No treatment needed but w/ improved respiration, this will go away on its own - IS as directed and Ambulated as tolerated Post Operative Anemia - Hgb is 9.1 - Recommend repeat Hgb in 1 week - OTC iron and MVI supplement Hypomagnesemia - Mg 1.6 - 2/2 inadequate intake - Pharmacy to replete - Expect to improve once her intake is better Additional Recommendation: Patient's appears clinically and hemodynamically stable. If discharge today, she should go home with IS and advised not to be sedentary. She will benefit with OTC iron and multivitamins to improve her Hgb level with a repeat CBC in 1 week. We also recommend Senokot (stool softener) to reduce risk for constipation if she goes home with narcotic pain pills. Called Dr. Judge and relayed above medical opinion and recommendations Requesting Provider: Dr. Valdivia Date Consult Requested: 12/03/17 Reason for Consult: Elevated D-Dimer Patient History Reviewed: Yes Admission H&P Reviewed: Yes Consult Result/Summary:: Stable Notified Requestor: Yes
[2017-12-03] MEDS ORDERED: Estrogens,Conjugated Vaginal Crm 30 GM Tube VAG ONE (08:57)
--- NOTE | 2017-12-03 09:01 | CT ---
CT chest Technique: Multiple axial sections through the chest were obtained. Intravenous contrast was utilized. Study has been performed as a pulmonary angiogram protocol. Comparison: No prior chest CT. Findings: Pulmonary arteries are well-opacified. No filling defects are seen to indicate pulmonary embolism. Mediastinum and hilar regions show no adenopathy or mass. No pericardial fluid or thickening is seen. Small portion of the visualized upper abdominal structures are normal. Small pleural effusions are seen on both sides, slightly larger on the right side. Pleural effusions are an interval change from prior CT exam showing the lung bases dated 12/01/17. Mild atelectasis is noted adjacent to both pleural effusions compatible with compressive atelectasis. Lungs otherwise are clear. No acute parenchymal change is otherwise seen. Impression: 1. Small bilateral pleural effusions with mild compressive atelectasis adjacent to the pleural effusions. 2. No findings of pulmonary embolism. 3. No additional abnormality is seen on CT study of the chest. Diagnostic code #3
[2017-12-03] MEDS ORDERED: Magnesium Sulfate/Water 2 GM in Premix Bag 1 BAG IV ONE (10:30)
[2017-12-03] MEDS ORDERED: Potassium Chloride 20 MEQ Tab.ER PO ONE (11:00)
[2017-12-03 12:18] VITALS: BP 115/67
--- NOTE | 2017-12-03 12:35 | PCM.DCSUM1 ---
Discharge Summary - Hospital Course Free Text/Narrative:: Patient had surgery on 11/30/2017 consisting of the following: Total vaginal hysterectomy, bilateral salpingectomy, anterior and posterior vaginal repair, modified Moschcowitz procedure, perineoplasty, subfascial mid-urethral sling. Drain: Grade 2-3 cystocele, grade 2 uterine prolapse, grade 2-3 rectocele. Patient had normal-appearing ovaries and these were left in place per patient desire. Pre Op Diagnosis: 1. Cystocele. 2. Rectocele. 3. Uterine prolapse. 4. Stress urinary incontinence Post-Op Diagnosis: Same The patient had a second surgery on 12/01/2017 consisting of laparoscopy, evacuation of. Vaginal hematoma. Diagnosis: Stroke: No - Discharge Data Discharge Date: 12/03/17 Discharge Disposition: Home, Self-Care 01 Condition: Good - Patient Summary/Data Operative Procedure(s) Performed: Laparoscopy, evacuation of vaginal hematoma Consults: Consultations 12/03/17 01:20 Consult to Physician [CONS] Routine - Patient Instructions Diet: Regular Diet as Tolerated Activity: As Tolerated ([place] or tampons until seen back. No lifting greater than 15 pounds or driving a car 1 week.) Driving: Do Not Drive Showering/Bathing: May Shower (May take a bath) Notify Provider of: Fever, Increased Pain, Swelling and Redness, Nausea and/or Vomiting - Discharge Plan Prescriptions/Med Rec: Ibuprofen 600 mg PO Q4HR PRN #30 tablet PRN Reason: Pain Home Medications: Home Meds Acetaminophen/oxyCODONE [Percocet 325-5 MG] 2 tab PO Q4H PRN tablet 11/30/17 [ Rx] Ibuprofen 600 mg PO Q4HR PRN #30 tablet 11/30/17 [Rx] Acetaminophen/oxyCODONE [Percocet 325-5 MG] 2 tab PO Q4H PRN tablet 12/03/17 [ Rx] Referrals: Tarik Judge MD [Physician] - (Return to clinic[facility] Judge[facility] weeks.) - Discharge Summary/Plan Comment DC Time >30 min.: No Discharge Summary/Plan Comment: Discharge instructions: 1. Discharge home 2. Diet, activity and follow-up discussed with patient. Recommend nursing diet with increased calories and calcium. 3. Precautions given concern increased pain, bleeding, temperature, signs/ symptoms of DVT/PE. 4. Medications per home medication was printed, discussed with and given to the patient. 5. Return to clinic-Dr. Valdiviae1 week, Dr. Judge4 weeks Diagnosis: 1. Pelvic organ prolapse 2. Stress urinary incontinence. 3. Perivaginal hematomaevacuated Condition: Good - Patient Data Vitals - Most Recent: Last Vital Signs Temp 37.2 C 12/03/17 12:00 Pulse 72 12/03/17 12:00 Resp 16 12/03/17 12:00 BP 115/67 12/03/17 12:00 Pulse Ox 96 12/03/17 12:00 Weight - Most Recent: 72.121 kg I&O - Last 24 hours: Intake & Output 12/02/17 12/03/17 12/03/17 22:59 06:59 14:59 Intake Total 1470 240 Output Total 625 1250 Balance 845 -1010 Lab Results - Last 24 hrs: Laboratory Results - last 24 hr 12/03/17 12/03/17 12/03/17 Range/Units 04:45 06:05 06:45 WBC 5.37 (3.98-10.04) K/mm3 RBC 3.02 L (3.98-5.22) M/mm3 Hgb 9.1 L (11.2-15.7) gm/L Hct 28.1 L (34.1-44.9) % MCV 93.0 (79.4-94.8) fl MCH 30.1 (25.6-32.2) pg MCHC 32.4 (32.2-35.5) g/dl RDW Std Deviation 49.7 H (36.4-46.3) fL Plt Count 117 L (182-369) K/mm3 MPV 9.6 (9.4-12.3) fl Neut % (Auto) 62.9 (34.0-71.1) % Lymph % (Auto) 25.3 (19.3-51.7) % [place] % (Auto) 8.0 (4.7-12.5) % Eos % (Auto) 3.2 (0.7-5.8) Baso % (Auto) 0.2 (0.1-1.2) % Neut # (Auto) 3.38 (1.56-6.13) K/mm3 Lymph # (Auto) 1.36 (1.18-3.74) K/mm3 [place] # (Auto) 0.43 H (0.24-0.36) K/mm3 Eos # (Auto) 0.17 (0.04-0.36) K/mm3 Baso # (Auto) 0.01 (0.01-0.08) K/mm3 D-Dimer, Quantitative 3.58 H (0.19-0.50) mg/L Sodium 139 (136-145) mEq/L Potassium 3.8 (3.5-5.1) mEq/L Chloride 104 (98-107) mEq/L Carbon Dioxide 30 (21-32) mEq/L Anion Gap 8.8 (5-15) BUN 7 (7-18) mg/dL Creatinine 0.8 (0.55-1.02) mg/dL Est Cr Clr Drug Dosing 97.69 mL/min Estimated GFR (MDRD) > 60 (>60) mL/min BUN/Creatinine Ratio 8.8 L (14-18) Glucose 96 (74-106) mg/dL Calcium 7.6 L (8.5-10.1) mg/dL Magnesium 1.5 L (1.8-2.4) mg/dl SYMONE Results - Last 24 hrs: Microbiology 12/01/17 12:08 Gram Stain - Final Perineum Anaerobic Culture - Preliminary Med Orders - Current: Current Medications Acetaminophen (Tylenol) 650 mg PO Q6H PRN PRN Reason: Fever Docusate Sodium (Colace) 100 mg PO BID [facility] Last Admin: 12/03/17 08:00 Dose: 100 mg Hydromorphone HCl (Dilaudid) 1 mg IVPUSH Q2H PRN PRN Reason: Pain (severe 7-10) Last Admin: 12/02/17 09:48 Dose: 1 mg Cefazolin Sodium/Dextrose 1 gm (/ Premix) 50 mls @ 100 mls/hr IV Q6H [facility] Last Admin: 12/03/17 10:47 Dose: 100 mls/hr Lactated Ringer's (Ringers, Lactated) 1,000 mls @ 125 mls/hr IV ASDIRECTED [facility] Magnesium Sulfate (Pharmacy To Dose - Magnesium Replacement) 0 dose .XX ASDIRECTED PRN PRN Reason: RX TO WATCH MAG LEVELS Ondansetron HCl (Zofran) 4 mg IVPUSH Q4H PRN PRN Reason: Nausea/Vomiting Oxycodone/Acetaminophen (Percocet 325-5 Mg) 2 tab PO Q4H PRN PRN Reason: Pain (moderate 4-6) Last Admin: 12/03/17 12:15 Dose: 1 tab Potassium Chloride (Pharmacy To Dose - Potassium Replacement) 0 dose .XX ASDIRECTED PRN PRN Reason: RX TO WATCH K LEVELS Sodium Chloride (Saline Flush) 10 ml FLUSH ONETIME PRN PRN Reason: IV FLUSH Stop: 12/03/17 16:00 Last Admin: 12/03/17 08:37 Dose: 10 ml Discontinued Medications Acetaminophen (Tylenol) 650 mg PO Q4H PRN PRN Reason: fever pain Last Admin: 12/01/17 08:30 Dose: 650 mg Belladonna Alkaloids/Opium (B & O Supprettes No. 15a) 1 supp RECTAL ONETIME ONE Stop: 11/30/17 19:01 Last Admin: 11/30/17 19:02 Dose: 1 supp Benzocaine/Menthol (Dermoplast Pain Relief [place]) 0 gm TOP ASDIRECTED PRN PRN Reason: Pain Last Admin: 12/01/17 00:13 Dose: 1 applic Bupivacaine HCl (Marcaine 0.5%) Confirm Administered Dose 30 ml .ROUTE .STK-MED ONE Stop: 12/01/17 11:18 Last Admin: 12/01/17 11:53 Dose: 8 ml Cefazolin Sodium (Ancef) Confirm Administered Dose 2 gm .ROUTE .STK-MED ONE Stop: 11/30/17 08:20 Cefazolin Sodium (Ancef) Confirm Administered Dose 2 gm .ROUTE .STK-MED ONE Stop: 12/01/17 10:56 Dexamethasone (Dexamethasone) Confirm Administered Dose 8 mg .ROUTE .STK-MED ONE Stop: 11/30/17 08:16 Dexamethasone (Dexamethasone) Confirm Administered Dose 20 mg .ROUTE .STK-MED ONE Stop: 12/01/17 13:45 Diphenhydramine HCl (Benadryl) 25 mg IVPUSH Q6H PRN PRN Reason: Pruritis Stop: 11/30/17 12:00 Diphenhydramine HCl (Benadryl) 25 mg IVPUSH Q6H PRN PRN Reason: Pruritis Docusate Sodium (Colace) 100 mg PO BID PRN PRN Reason: Constipation Last Admin: 12/01/17 20:38 Dose: 100 mg Ephedrine Sulfate (Ephedrine Sulfate) 5 mg IVPUSH ASDIRECTED PRN PRN Reason: Hypotension Estrogens Conjugated (Premarin Vaginal Crm) 0.625 gm VAG ONETIME ONE Stop: 12/03/17 08:58 Last Admin: 12/03/17 09:14 Dose: 1 mg Fentanyl (Sublimaze) Confirm Administered Dose 250 mcg .ROUTE .STK-MED ONE Stop: 11/30/17 08:16 Fentanyl (Sublimaze) 50 mcg IVPUSH Q5M PRN PRN Reason: Pain Stop: 11/30/17 09:12 Fentanyl (Sublimaze) Confirm Administered Dose 250 mcg .ROUTE .STK-MED ONE Stop: 12/01/17 10:57 Fentanyl (Sublimaze) 50 mcg IVPUSH Q5M PRN PRN Reason: Pain Glycopyrrolate () Confirm Administered Dose 1 mg .ROUTE .STK-MED ONE Stop: 12/01/17 12:54 Haloperidol Lactate (Haldol) 1 mg IVPUSH ONETIME ONE Stop: 12/01/17 12:29 Last Admin: 12/02/17 02:50 Dose: Not Given Hydromorphone HCl (Dilaudid) Confirm Administered Dose 0.5 mg .ROUTE .STK-MED ONE Stop: 11/30/17 08:16 Hydromorphone HCl (Dilaudid) Confirm Administered Dose 0.5 mg .ROUTE .STK-MED ONE Stop: 11/30/17 09:01 Hydromorphone HCl (Dilaudid) 0.5 mg IVPUSH ONETIME ONE Stop: 11/30/17 09:12 Last Admin: 11/30/17 16:52 Dose: Not Given Hydromorphone HCl (Dilaudid) 1 mg IVPUSH Q2H PRN PRN Reason: Pain Last Admin: 11/30/17 15:19 Dose: 1 mg Hydromorphone HCl (Dilaudid) Confirm Administered Dose 1 mg .ROUTE .STK-MED ONE Stop: 11/30/17 15:21 Last Admin: 11/30/17 15:29 Dose: Not Given Hydromorphone HCl (Dilaudid) 0.5 mg IV ASDIRECTED PRN PRN Reason: Severe Pain Hydroxyzine HCl (Atarax) 25 mg PO Q6H PRN PRN Reason: Pain Last Admin: 11/30/17 21:10 Dose: 25 mg Hydroxyzine HCl (Vistaril) 25 mg IM ONETIME ONE Stop: 12/01/17 00:42 Last Admin: 12/01/17 01:26 Dose: 25 mg Lactated Ringer's (Ringers, Lactated) 1,000 mls @ 125 mls/hr IV ASDIRECTED [facility] Stop: 11/30/17 23:00 Last Admin: 12/01/17 13:12 Dose: 125 mls/hr Lidocaine HCl (Xylocaine-Mpf 1%) Confirm Administered Dose 4 mls @ as directed .ROUTE .STK-MED ONE Stop: 11/30/17 08:16 Lactated Ringer's (Ringers, Lactated) Confirm Administered Dose 1,000 mls @ as directed .ROUTE .STK-MED ONE Stop: 11/30/17 09:29 Acetaminophen (Ofirmev) 100 mls @ 400 mls/hr IV NOW ONE Stop: 11/30/17 14:06 Last Admin: 11/30/17 13:58 Dose: 400 mls/hr Lactated Ringer's (Ringers, Lactated) 1,000 mls @ 125 mls/hr IV ASDIRECTED [facility] Last Admin: 12/01/17 06:52 Dose: 250 mls/hr Sodium Chloride (Normal Saline) Confirm Administered Dose 500 mls @ as directed .ROUTE .STK-MED ONE Stop: 12/01/17 08:17 Last Admin: 12/01/17 09:30 Dose: 50 mls/hr Sodium Chloride (Normal Saline) 500 mls @ 100 mls/hr IV .ASDIRECTED [facility] Sodium Chloride (Normal Saline) Confirm Administered Dose 500 mls @ as directed .ROUTE .STK-MED ONE Stop: 12/01/17 09:08 Last Admin: 12/01/17 09:32 Dose: 50 mls/hr Lactated Ringer's (Ringers, Lactated) Confirm Administered Dose 1,000 mls @ as directed .ROUTE .STK-MED ONE Stop: 12/01/17 10:56 Lidocaine HCl (Xylocaine-Mpf 1%) Confirm Administered Dose 4 mls @ as directed .ROUTE .STK-MED ONE Stop: 12/01/17 10:57 Sodium Chloride (Normal Saline) Confirm Administered Dose 1,000 mls @ as directed .ROUTE .STK-MED ONE Stop: 12/01/17 12:31 Lactated Ringer's (Ringers, Lactated) Confirm Administered Dose 1,000 mls @ as directed .ROUTE .STK-MED ONE Stop: 12/01/17 12:38 Lactated Ringer's (Ringers, Lactated) 1,000 mls @ 125 mls/hr IV ASDIRECTED [facility] Last Admin: 12/03/17 04:40 Dose: 125 mls/hr Cefazolin Sodium/Dextrose (Ancef) Confirm Administered Dose 50 mls @ as directed .ROUTE .[facility]-MED ONE Stop: 12/01/17 22:49 Last Admin: 12/02/17 02:50 Dose: Not Given Sodium Chloride (Normal Saline) 100 mls @ 75 mls/hr IV ASDIRECTED [facility] Stop: 12/03/17 12:00 Last Admin: 12/03/17 08:37 Dose: 75 mls/hr Magnesium Sulfate 2 gm/ Premix 50 mls @ 25 mls/hr IV ONETIME ONE Stop: 12/03/17 12:29 Last Admin: 12/03/17 10:27 Dose: 25 mls/hr Iopamidol (Isovue-300 (61%)) 120 ml IVPUSH ONETIME ONE Stop: 12/01/17 08:10 Last Admin: 12/01/17 08:20 Dose: 120 ml Iopamidol (Isovue-370 (76%)) 100 ml IVPUSH ONETIME ONE Stop: 12/03/17 08:09 Last Admin: 12/03/17 08:36 Dose: 80 ml Ketamine HCl (Ketalar) Confirm Administered Dose 500 mg .ROUTE .STK-MED ONE Stop: 11/30/17 08:16 Ketamine HCl (Ketalar) Confirm Administered Dose 500 mg .ROUTE .STK-MED ONE Stop: 12/01/17 11:23 Ketorolac Tromethamine (Toradol) Confirm Administered Dose 30 mg .ROUTE .STK- MED ONE Stop: 11/30/17 09:21 Ketorolac Tromethamine (Toradol) 30 mg IVPUSH ONETIME [facility] Stop: 11/30/17 16:00 Ketorolac Tromethamine (Toradol) 30 mg IVPUSH Q6H PRN PRN Reason: Pain Last Admin: 12/01/17 06:50 Dose: 30 mg Lidocaine/Epinephrine (Xylocaine 1% With Epinephrine 1:100,000) Confirm Administered Dose 20 ml .ROUTE .STK-MED ONE Stop: 11/30/17 08:24 Last Admin: 11/30/17 08:51 Dose: 15 ml Lidocaine/Sodium Bicarbonate (Buffered Lidocaine 1% In Ns 8.4%) 0.25 ml IDERM ONETIME PRN PRN Reason: Prior to IV Start Stop: 11/30/17 18:00 Last Admin: 11/30/17 07:34 Dose: 0.25 ml Meperidine HCl (Meperidine) 12.5 mg IVPUSH ONETIME PRN PRN Reason: Shivering Stop: 11/30/17 09:12 Metoclopramide HCl (Reglan) Confirm Administered Dose 10 mg .ROUTE .STK-MED ONE Stop: 12/01/17 11:16 Last Admin: 12/01/17 10:20 Dose: 10 mg Metoclopramide HCl (Reglan) 10 mg IVPUSH ONETIME ONE Stop: 12/01/17 14:06 Last Admin: 12/02/17 02:50 Dose: Not Given Midazolam HCl (Versed 1 Mg/Ml) Confirm Administered Dose 2 mg .ROUTE .STK-MED ONE Stop: 11/30/17 08:16 Midazolam HCl (Versed 1 Mg/Ml) Confirm Administered Dose 2 mg .ROUTE .STK-MED ONE Stop: 12/01/17 10:56 Morphine Sulfate (Morphine) 5 mg IM ONETIME ONE Stop: 12/01/17 00:46 Last Admin: 12/01/17 01:26 Dose: 5 mg Neostigmine Methylsulfate (Neostigmine) Confirm Administered Dose 5 mg .ROUTE .STK-MED ONE Stop: 12/01/17 12:54 Nitrofurantoin Macrocrystals (Macrobid) 100 mg PO BID [facility] Last Admin: 12/01/17 14:02 Dose: Not Given Ondansetron HCl (Zofran) Confirm Administered Dose 4 mg .ROUTE .STK-MED ONE Stop: 11/30/17 08:16 Ondansetron HCl (Zofran) 4 mg IVPUSH ONETIME PRN PRN Reason: Nausea/Vomiting Stop: 11/30/17 12:00 Ondansetron HCl (Zofran) 4 mg IVPUSH Q4H PRN PRN Reason: Nausea Stop: 11/30/17 16:00 Last Admin: 11/30/17 13:56 Dose: 4 mg Ondansetron HCl (Zofran) Confirm Administered Dose 4 mg .ROUTE .STK-MED ONE Stop: 12/01/17 10:56 Oxycodone/Acetaminophen (Percocet 325-5 Mg) 2 tab PO Q4H PRN PRN Reason: Pain Stop: 11/30/17 16:00 Oxycodone/Acetaminophen (Percocet 325-5 Mg) 2 tab PO Q4H PRN PRN Reason: Pain Last Admin: 11/30/17 21:37 Dose: 1 tab Potassium Chloride (Klor-Con M20) 40 meq PO ONETIME ONE Stop: 12/03/17 11:01 Last Admin: 12/03/17 10:38 Dose: 40 meq Propofol (Diprivan 20 Ml) Confirm Administered Dose 200 mg .ROUTE .STK-MED ONE Stop: 11/30/17 08:16 Propofol (Diprivan 20 Ml) Confirm Administered Dose 200 mg .ROUTE .STK-MED ONE Stop: 11/30/17 08:25 Propofol (Diprivan 20 Ml) Confirm Administered Dose 200 mg .ROUTE .STK-MED ONE Stop: 11/30/17 08:25 Propofol (Diprivan 20 Ml) Confirm Administered Dose 200 mg .ROUTE .STK-MED ONE Stop: 11/30/17 09:21 Propofol (Diprivan 20 Ml) Confirm Administered Dose 200 mg .ROUTE .STK-MED ONE Stop: 11/30/17 09:45 Propofol (Diprivan 20 Ml) Confirm Administered Dose 200 mg .ROUTE .STK-MED ONE Stop: 11/30/17 10:09 Propofol (Diprivan 20 Ml) Confirm Administered Dose 400 mg .ROUTE .STK-MED ONE Stop: 12/01/17 10:56 Propofol (Diprivan 20 Ml) Confirm Administered Dose 200 mg .ROUTE .STK-MED ONE Stop: 12/01/17 10:59 Rocuronium [place] (Zemuron) Confirm Administered Dose 50 mg .ROUTE .STK-MED ONE Stop: 11/30/17 08:16 Rocuronium [place] (Zemuron) Confirm Administered Dose 50 mg .ROUTE .STK-MED ONE Stop: 12/01/17 10:56 Scopolamine (Transderm-Scop) 1.5 mg TOP ONETIME ONE Stop: 11/30/17 07:39 Last Admin: 11/30/17 07:55 Dose: 1.5 mg Sodium Chloride (Saline Flush) 10 ml FLUSH ASDIRECTED PRN PRN Reason: Keep Vein Open Stop: 11/30/17 18:00 Sodium Chloride (Normal Saline) Confirm Administered Dose 50 ml .ROUTE .STK-MED ONE Stop: 11/30/17 08:24 Last Admin: 11/30/17 08:51 Dose: 40 ml Succinylcholine Chloride (Succinylcholine In Ns Pf) Confirm Administered Dose 100 mg .ROUTE .STK-MED ONE Stop: 12/01/17 12:31 Rene Bone (Tucks) 1 pad TOP ASDIRECTED PRN PRN Reason: Pain Last Admin: 12/01/17 00:13 Dose: 1 applic
--- NOTE | 2017-12-04 14:43 | PCM.DEL ---
L & D Note - Delivery Note Labor: Spontaneous, Augmented by ARM, Augmented by Oxytocin Delivery Outcome: Livebirth (Male liveborn Sunday12/02/17 and 1908 hrs. JUAREZ Apgars 8/9 weight pending shoulder cord 1) Presentation: Right Occiput Anterior (JUAREZ) Nuchal Cord: None (Shoulder cord 1) Prep: Povidone-Iodine (Betadine Anesthesia Type: Combined Spinal Epidural Episiotomy Type: None Laceration: 1st Degree (Right periurethral not bleeding not sutured, midline first-degree sutured 3-0 Monocryl times one) Suture type: Other (Monocryl) Suture size: 3-0 Placenta: Intact, Spontaneous (Delivered at 1911 hrs. Sunday12/02/17 intact examined discarded) Cord: 3 Vessels Estimated Blood Loss: 250 Resuscitation Needed: No Richardson: Suctioned, Bulb Syringe, Stimulated, Warmed, Imperial Used, Warmer Used Provider: Elliot Johnston - Patient Data Vitals - Most Recent: Last Vital Signs Temp 98.9 F 12/03/17 12:00 Pulse 72 12/03/17 12:00 Resp 16 12/03/17 12:00 BP 115/67 12/03/17 12:00 Pulse Ox 96 12/03/17 12:00 Weight - Most Recent: 159 lb Hang Results Last 24 Hours: Microbiology 12/01/17 12:08 Gram Stain - Final Perineum Anaerobic Culture - Preliminary Med Orders - Current: Current Medications Discontinued Medications Acetaminophen (Tylenol) 650 mg PO Q4H PRN PRN Reason: fever pain Last Admin: 12/01/17 08:30 Dose: 650 mg Acetaminophen (Tylenol) 650 mg PO Q6H PRN PRN Reason: Fever Belladonna Alkaloids/Opium (B & O Supprettes No. 15a) 1 supp RECTAL ONETIME ONE Stop: 11/30/17 19:01 Last Admin: 11/30/17 19:02 Dose: 1 supp Benzocaine/Menthol (Dermoplast Pain Relief [place]) 0 gm TOP ASDIRECTED PRN PRN Reason: Pain Last Admin: 12/01/17 00:13 Dose: 1 applic Bupivacaine HCl (Marcaine 0.5%) Confirm Administered Dose 30 ml .ROUTE .STK-MED ONE Stop: 12/01/17 11:18 Last Admin: 12/01/17 11:53 Dose: 8 ml Cefazolin Sodium (Ancef) Confirm Administered Dose 2 gm .ROUTE .STK-MED ONE Stop: 11/30/17 08:20 Cefazolin Sodium (Ancef) Confirm Administered Dose 2 gm .ROUTE .STK-MED ONE Stop: 12/01/17 10:56 Dexamethasone (Dexamethasone) Confirm Administered Dose 8 mg .ROUTE .STK-MED ONE Stop: 11/30/17 08:16 Dexamethasone (Dexamethasone) Confirm Administered Dose 20 mg .ROUTE .STK-MED ONE Stop: 12/01/17 13:45 Diphenhydramine HCl (Benadryl) 25 mg IVPUSH Q6H PRN PRN Reason: Pruritis Stop: 11/30/17 12:00 Diphenhydramine HCl (Benadryl) 25 mg IVPUSH Q6H PRN PRN Reason: Pruritis Docusate Sodium (Colace) 100 mg PO BID PRN PRN Reason: Constipation Last Admin: 12/01/17 20:38 Dose: 100 mg Docusate Sodium (Colace) 100 mg PO BID SOPHIE Last Admin: 12/03/17 08:00 Dose: 100 mg Ephedrine Sulfate (Ephedrine Sulfate) 5 mg IVPUSH ASDIRECTED PRN PRN Reason: Hypotension Estrogens Conjugated (Premarin Vaginal Crm) 0.625 gm VAG ONETIME ONE Stop: 12/03/17 08:58 Last Admin: 12/03/17 09:14 Dose: 1 mg Fentanyl (Sublimaze) Confirm Administered Dose 250 mcg .ROUTE .STK-MED ONE Stop: 11/30/17 08:16 Fentanyl (Sublimaze) 50 mcg IVPUSH Q5M PRN PRN Reason: Pain Stop: 11/30/17 09:12 Fentanyl (Sublimaze) Confirm Administered Dose 250 mcg .ROUTE .STK-MED ONE Stop: 12/01/17 10:57 Fentanyl (Sublimaze) 50 mcg IVPUSH Q5M PRN PRN Reason: Pain Glycopyrrolate () Confirm Administered Dose 1 mg .ROUTE .STK-MED ONE Stop: 12/01/17 12:54 Haloperidol Lactate (Haldol) 1 mg IVPUSH ONETIME ONE Stop: 12/01/17 12:29 Last Admin: 12/02/17 02:50 Dose: Not Given Hydromorphone HCl (Dilaudid) Confirm Administered Dose 0.5 mg .ROUTE .STK-MED ONE Stop: 11/30/17 08:16 Hydromorphone HCl (Dilaudid) Confirm Administered Dose 0.5 mg .ROUTE .ST-MED ONE Stop: 11/30/17 09:01 Hydromorphone HCl (Dilaudid) 0.5 mg IVPUSH ONETIME ONE Stop: 11/30/17 09:12 Last Admin: 11/30/17 16:52 Dose: Not Given Hydromorphone HCl (Dilaudid) 1 mg IVPUSH Q2H PRN PRN Reason: Pain Last Admin: 11/30/17 15:19 Dose: 1 mg Hydromorphone HCl (Dilaudid) Confirm Administered Dose 1 mg .ROUTE .ST-MED ONE Stop: 11/30/17 15:21 Last Admin: 11/30/17 15:29 Dose: Not Given Hydromorphone HCl (Dilaudid) 0.5 mg IV ASDIRECTED PRN PRN Reason: Severe Pain Hydromorphone HCl (Dilaudid) 1 mg IVPUSH Q2H PRN PRN Reason: Pain (severe 7-10) Last Admin: 12/02/17 09:48 Dose: 1 mg Hydroxyzine HCl (Atarax) 25 mg PO Q6H PRN PRN Reason: Pain Last Admin: 11/30/17 21:10 Dose: 25 mg Hydroxyzine HCl (Vistaril) 25 mg IM ONETIME ONE Stop: 12/01/17 00:42 Last Admin: 12/01/17 01:26 Dose: 25 mg Lactated Ringer's (Ringers, Lactated) 1,000 mls @ 125 mls/hr IV ASDIRECTED SOPHIE Stop: 11/30/17 23:00 Last Admin: 12/01/17 13:12 Dose: 125 mls/hr Lidocaine HCl (Xylocaine-Mpf 1%) Confirm Administered Dose 4 mls @ as directed .ROUTE .ST-MED ONE Stop: 11/30/17 08:16 Lactated Ringer's (Ringers, Lactated) Confirm Administered Dose 1,000 mls @ as directed .ROUTE .[facility]-MED ONE Stop: 11/30/17 09:29 Acetaminophen (Ofirmev) 100 mls @ 400 mls/hr IV NOW ONE Stop: 11/30/17 14:06 Last Admin: 11/30/17 13:58 Dose: 400 mls/hr Lactated Ringer's (Ringers, Lactated) 1,000 mls @ 125 mls/hr IV ASDIRECTED SOPHIE Last Admin: 12/01/17 06:52 Dose: 250 mls/hr Sodium Chloride (Normal Saline) Confirm Administered Dose 500 mls @ as directed .ROUTE .[facility] ONE Stop: 12/01/17 08:17 Last Admin: 12/01/17 09:30 Dose: 50 mls/hr Sodium Chloride (Normal Saline) 500 mls @ 100 mls/hr IV [facility] Sodium Chloride (Normal Saline) Confirm Administered Dose 500 mls @ as directed .ROUTE .[facility] ONE Stop: 12/01/17 09:08 Last Admin: 12/01/17 09:32 Dose: 50 mls/hr Lactated Ringer's (Ringers, Lactated) Confirm Administered Dose 1,000 mls @ as directed .ROUTE .[facility] ONE Stop: 12/01/17 10:56 Lidocaine HCl (Xylocaine-Mpf 1%) Confirm Administered Dose 4 mls @ as directed .ROUTE .[facility] ONE Stop: 12/01/17 10:57 Sodium Chloride (Normal Saline) Confirm Administered Dose 1,000 mls @ as directed .ROUTE .[facility] ONE Stop: 12/01/17 12:31 Lactated Ringer's (Ringers, Lactated) Confirm Administered Dose 1,000 mls @ as directed .ROUTE .[facility] ONE Stop: 12/01/17 12:38 Lactated Ringer's (Ringers, Lactated) 1,000 mls @ 125 mls/hr IV ASDIRECTED [facility] Last Admin: 12/03/17 04:40 Dose: 125 mls/hr Cefazolin Sodium/Dextrose 1 gm (/ Premix) 50 mls @ 100 mls/hr IV Q6H [facility] Last Admin: 12/03/17 10:47 Dose: 100 mls/hr Lactated Ringer's (Ringers, Lactated) 1,000 mls @ 125 mls/hr IV ASDIRECTED [facility] Cefazolin Sodium/Dextrose (Ancef) Confirm Administered Dose 50 mls @ as directed .ROUTE .[facility] ONE Stop: 12/01/17 22:49 Last Admin: 12/02/17 02:50 Dose: Not Given Sodium Chloride (Normal Saline) 100 mls @ 75 mls/hr IV ASDIRECTED [facility] Stop: 12/03/17 12:00 Last Admin: 12/03/17 08:37 Dose: 75 mls/hr Magnesium Sulfate 2 gm/ Premix 50 mls @ 25 mls/hr IV ONETIME ONE Stop: 12/03/17 12:29 Last Admin: 12/03/17 10:27 Dose: 25 mls/hr Iopamidol (Isovue-300 (61%)) 120 ml IVPUSH ONETIME ONE Stop: 12/01/17 08:10 Last Admin: 12/01/17 08:20 Dose: 120 ml Iopamidol (Isovue-370 (76%)) 100 ml IVPUSH ONETIME ONE Stop: 12/03/17 08:09 Last Admin: 12/03/17 08:36 Dose: 80 ml Ketamine HCl (Ketalar) Confirm Administered Dose 500 mg .ROUTE .STK-MED ONE Stop: 11/30/17 08:16 Ketamine HCl (Ketalar) Confirm Administered Dose 500 mg .ROUTE .STK-MED ONE Stop: 12/01/17 11:23 Ketorolac Tromethamine (Toradol) Confirm Administered Dose 30 mg .ROUTE .STK- MED ONE Stop: 11/30/17 09:21 Ketorolac Tromethamine (Toradol) 30 mg IVPUSH ONETIME [facility] Stop: 11/30/17 16:00 Ketorolac Tromethamine (Toradol) 30 mg IVPUSH Q6H PRN PRN Reason: Pain Last Admin: 12/01/17 06:50 Dose: 30 mg Lidocaine/Epinephrine (Xylocaine 1% With Epinephrine 1:100,000) Confirm Administered Dose 20 ml .ROUTE .STK-MED ONE Stop: 11/30/17 08:24 Last Admin: 11/30/17 08:51 Dose: 10 ml Lidocaine/Sodium Bicarbonate (Buffered Lidocaine 1% In Ns 8.4%) 0.25 ml IDERM ONETIME PRN PRN Reason: Prior to IV Start Stop: 11/30/17 18:00 Last Admin: 11/30/17 07:34 Dose: 0.25 ml Magnesium Sulfate (Pharmacy To Dose - Magnesium Replacement) 0 dose .XX ASDIRECTED PRN PRN Reason: RX TO WATCH MAG LEVELS Meperidine HCl (Meperidine) 12.5 mg IVPUSH ONETIME PRN PRN Reason: Shivering Stop: 11/30/17 09:12 Metoclopramide HCl (Reglan) Confirm Administered Dose 10 mg .ROUTE .STK-MED ONE Stop: 12/01/17 11:16 Last Admin: 12/01/17 10:20 Dose: 10 mg Metoclopramide HCl (Reglan) 10 mg IVPUSH ONETIME ONE Stop: 12/01/17 14:06 Last Admin: 12/02/17 02:50 Dose: Not Given Midazolam HCl (Versed 1 Mg/Ml) Confirm Administered Dose 2 mg .ROUTE .STK-MED ONE Stop: 11/30/17 08:16 Midazolam HCl (Versed 1 Mg/Ml) Confirm Administered Dose 2 mg .ROUTE .STK-MED ONE Stop: 12/01/17 10:56 Morphine Sulfate (Morphine) 5 mg IM ONETIME ONE Stop: 12/01/17 00:46 Last Admin: 12/01/17 01:26 Dose: 5 mg Neostigmine Methylsulfate (Neostigmine) Confirm Administered Dose 5 mg .ROUTE .STK-MED ONE Stop: 12/01/17 12:54 Nitrofurantoin Macrocrystals (Macrobid) 100 mg PO BID SOPHIE Last Admin: 12/01/17 14:02 Dose: Not Given Ondansetron HCl (Zofran) Confirm Administered Dose 4 mg .ROUTE .STK-MED ONE Stop: 11/30/17 08:16 Ondansetron HCl (Zofran) 4 mg IVPUSH ONETIME PRN PRN Reason: Nausea/Vomiting Stop: 11/30/17 12:00 Ondansetron HCl (Zofran) 4 mg IVPUSH Q4H PRN PRN Reason: Nausea Stop: 11/30/17 16:00 Last Admin: 11/30/17 13:56 Dose: 4 mg Ondansetron HCl (Zofran) Confirm Administered Dose 4 mg .ROUTE .STK-MED ONE Stop: 12/01/17 10:56 Ondansetron HCl (Zofran) 4 mg IVPUSH Q4H PRN PRN Reason: Nausea/Vomiting Oxycodone/Acetaminophen (Percocet 325-5 Mg) 2 tab PO Q4H PRN PRN Reason: Pain Stop: 11/30/17 16:00 Oxycodone/Acetaminophen (Percocet 325-5 Mg) 2 tab PO Q4H PRN PRN Reason: Pain Last Admin: 11/30/17 21:37 Dose: 1 tab Oxycodone/Acetaminophen (Percocet 325-5 Mg) 2 tab PO Q4H PRN PRN Reason: Pain (moderate 4-6) Last Admin: 12/03/17 12:15 Dose: 1 tab Potassium Chloride (Pharmacy To Dose - Potassium Replacement) 0 dose .XX ASDIRECTED PRN PRN Reason: RX TO WATCH K LEVELS Potassium Chloride (Klor-Con M20) 40 meq PO ONETIME ONE Stop: 12/03/17 11:01 Last Admin: 12/03/17 10:38 Dose: 40 meq Propofol (Diprivan 20 Ml) Confirm Administered Dose 200 mg .ROUTE .STK-MED ONE Stop: 11/30/17 08:16 Propofol (Diprivan 20 Ml) Confirm Administered Dose 200 mg .ROUTE .STK-MED ONE Stop: 11/30/17 08:25 Propofol (Diprivan 20 Ml) Confirm Administered Dose 200 mg .ROUTE .STK-MED ONE Stop: 11/30/17 08:25 Propofol (Diprivan 20 Ml) Confirm Administered Dose 200 mg .ROUTE .STK-MED ONE Stop: 11/30/17 09:21 Propofol (Diprivan 20 Ml) Confirm Administered Dose 200 mg .ROUTE .STK-MED ONE Stop: 11/30/17 09:45 Propofol (Diprivan 20 Ml) Confirm Administered Dose 200 mg .ROUTE .STK-MED ONE Stop: 11/30/17 10:09 Propofol (Diprivan 20 Ml) Confirm Administered Dose 400 mg .ROUTE .STK-MED ONE Stop: 12/01/17 10:56 Propofol (Diprivan 20 Ml) Confirm Administered Dose 200 mg .ROUTE .STK-MED ONE Stop: 12/01/17 10:59 Rocuronium Alva (Zemuron) Confirm Administered Dose 50 mg .ROUTE .STK-MED ONE Stop: 11/30/17 08:16 Rocuronium [place] (Zemuron) Confirm Administered Dose 50 mg .ROUTE .STK-MED ONE Stop: 12/01/17 10:56 Scopolamine (Transderm-Scop) 1.5 mg TOP ONETIME ONE Stop: 11/30/17 07:39 Last Admin: 11/30/17 07:55 Dose: 1.5 mg Sodium Chloride (Saline Flush) 10 ml FLUSH ASDIRECTED PRN PRN Reason: Keep Vein Open Stop: 11/30/17 18:00 Sodium Chloride (Normal Saline) Confirm Administered Dose 50 ml .ROUTE .STK-MED ONE Stop: 11/30/17 08:24 Last Admin: 11/30/17 08:51 Dose: 30 ml Sodium Chloride (Saline Flush) 10 ml FLUSH ONETIME PRN PRN Reason: IV FLUSH Stop: 12/03/17 16:00 Last Admin: 12/03/17 08:37 Dose: 10 ml Succinylcholine Chloride (Succinylcholine In Ns Pf) Confirm Administered Dose 100 mg .ROUTE .STK-MED ONE Stop: 12/01/17 12:31 Witpreeti Bone (Tucks) 1 pad TOP ASDIRECTED PRN PRN Reason: Pain Last Admin: 12/01/17 00:13 Dose: 1 applic
== END 2017-12-03 14:15 | disposition home or self-care (01) | DRG 742 ==
LOC: JD.SDS 07:10 → JD.OB 17:12 → JD.SDS 12-01 09:37 → OBSVTOIN 12-01 13:11
PROVIDERS: ADMIT Obstetrics & Gynecology; ATTEND Obstetrics & Gynecology
PROC: 0UT97ZZ Resection of Uterus, Via Natural or Artificial Opening (ICD-10-PCS; principal; 2017-11-30)
PROC: 0UT77ZZ Resection of Bilateral Fallopian Tubes, Via Natural or Artificial Opening (ICD-10-PCS; 2017-11-30)
PROC: 0JQC0ZZ Repair Pelvic Region Subcutaneous Tissue and Fascia, Open Approach (ICD-10-PCS; 2017-11-30)
PROC: 0JQC0ZZ Repair Pelvic Region Subcutaneous Tissue and Fascia, Open Approach (ICD-10-PCS; 2017-11-30)
PROC: 0UQF0ZZ Repair Cul-de-sac, Open Approach (ICD-10-PCS; 2017-11-30)
PROC: 0TSD0ZZ Reposition Urethra, Open Approach (ICD-10-PCS; 2017-11-30)
PROC: 0W3R4ZZ Control Bleeding in Genitourinary Tract, Percutaneous Endoscopic Approach (ICD-10-PCS; 2017-12-01)
PROC: 30233K1 Transfusion of Nonautologous Frozen Plasma into Peripheral Vein, Percutaneous Approach (ICD-10-PCS; 2017-12-01)
PROC: 30233N1 Transfusion of Nonautologous Red Blood Cells into Peripheral Vein, Percutaneous Approach (ICD-10-PCS; 2017-12-01)
DX: N81.2 Incomplete uterovaginal prolapse (principal); D62 Acute posthemorrhagic anemia; N99.840 Postprocedural hematoma of a genitourinary system organ or structure following a genitourinary system procedure; N39.46 Mixed incontinence; J30.9 Allergic rhinitis, unspecified; Z87.891 Personal history of nicotine dependence; H54.7 Unspecified visual loss; Z88.0 Allergy status to penicillin; Y65.8 Other specified misadventures during surgical and medical care; Y76.8 Miscellaneous obstetric and gynecological devices associated with adverse incidents, not elsewhere classified; Y92.239 Unspecified place in hospital as the place of occurrence of the external cause
CPT/HCPCS: 00840; 00944; 36415; 36430; 51701; 51702; 71275; 71275-26; 74177; 74177-26; 80048; 80053; 81003; 81025; 82565; 83735; 85025; 85379; 86850; 86900; 86901; 86922; 87075; 87076; 87181; 87205; 94760; A9270-GY; C1771; J0131; J0330; J0690; J1100; J1170; J1885; J2001; J2250; J2270; J2405; J2704; J2710; J2765; J3010; J3410; J3475; J3490; J7030; J7040; J7120; P9016; P9017; P9037; Q9967